=== PATIENT | female | born 2000 | race Caucasian/White ===

== ENCOUNTER 2018-04-20 20:28 | Emergency (ER) | payer OTHER, SELFPAY ==
[2018-04-20 20:29] VITALS: BP 129/83; PULSE 87; RESP 14; TEMP 37.3; O2SAT 98; BMI 21.8
--- NOTE | 2018-04-20 20:58 | ED.VIS.GEN ---
History of Present Illness Chief Complaint: Vag Bleeding Informant: Patient Onset: Hours - 4-5 Context: Gradual Onset Timing: Waxes and wanes Quality: cramping Location: pelvis -- mid and right Current Severity: Moderate Maximum Severity: Severe Worsened by: nothing Relieved by: possibly by advil 400mg Associated Symptoms: nausea, lightheaded, pain radiating into low back, vaginal bleeding Narrative: Patient states she usually has very regular menstrual cycles every 4 weeks, she started bleeding today and her last normal menstrual period was 3 weeks ago. She states it started as spotting, but then became very heavy, and is still present but not as bad. She states the pain was like regular menstrual cramps but ?10. She has never been before but is sexually active. No history of any STDs that she knows of, nor does she have any concern. She denies having any other abnormal discharge other than the bleeding currently. No recent fevers. Prior similar symptoms: No Past Medical History - Allergies and Home Meds Allergies/Adverse Reactions: Allergies No Known Allergies Allergy (Verified 04/20/18 20:32) Primary Care Physician: NOT,DEFINED [NON-STAFF] - Past Medical History: None Surgical History: no surgical history Smoking Status: Never smoker Review of Systems All systems negative except as indicated Gastrointestinal: Reports: Abdominal pain, Nausea. Denies: Vomiting, Diarrhea, Melena, Hematochezia Genitourinary: Denies: Dysuria, Hematuria, Frequency Musculoskeletal: Reports: Back pain. Denies: Neck pain, Swelling, Extremity Pain Skin: Denies: Rash Neurological: Denies: Headache, Weakness, Parasthesia Physical Exam Vital Signs/Narrative: Vital Signs Temp Pulse Resp BP Pulse Ox 04/20/18 20:29 99.2 F H 87 14 129/83 H 98 Inital Vital Signs reviewed: Yes General: Well nourished, Well developed, - - nad Head: Normocephalic, Atraumatic Cardiovascular: Regular rate, Regular rhythm, No murmurs Respiratory: No distress, CTA bilaterally, Chest nontender Abdomen: Soft, Nondistended, Normal bowel sounds, Tender - moderately in suprapubic and R pelvis. otherwise, benign exam.. Negative for: Guarding, Rebound tenderness Back: Nontender, Normal Inspection. Negative for: CVA tenderness Extremities: Nontender, No edema Skin: Normal color, No rash Neurological: Alert, Oriented x3, Cranial nerves II-XII grossly intact, Normal Strength, Normal Sensation Psychological: Normal affect Diagnostic/Tx/Re-eval Impressions Transvaginal US 04/20/18 20:55 IMPRESSION: Mildly heterogenous myometrium may reflect underlying adenomyosis. Electronically Signed: Rosa Estrada MD at 21:58 EDT Tel , Service support , 04/20/18 20:55 Transvaginal Non- [US] Stat Laboratory Results 04/20/18 04/20/18 04/20/18 Range/Units 21:20 21:20 21:20 WBC 11.8 H (4.4-11.0) K/mm3 RBC 4.73 (4.2-5.4) M/mm3 Hgb 13.5 (12.0-15.0) g/dl Hct 41.8 (37-47) % MCV 88.4 (81-99) fL MCH 28.5 (27.0-32.0) pg MCHC 32.3 (32-36) g/gl RDW 12.4 (11.6-14.6) % RDW Differential 40.0 (35.1-43.9) fl Plt Count 257 (150-450) K/mm3 MPV 10.4 (6.2-12.0) fl Immature Gran % (Auto) 0.100 (0.0-0.9) % Neut % (Auto) 65.1 (47-70) % Lymph % (Auto) 25.2 (19-41) % Lynn % (Auto) 8.0 (0-10) % Eos % (Auto) 1.3 (0-5) % Baso % (Auto) 0.3 (0-1) % Absolute Neuts (auto) 7.7 (2.0-7.7) X10^3/uL Absolute Lymphs (auto) 2.98 (0.83-4.51) X10^3/ul Total Counted Not Reportable Sodium 144 (136-145) mmol/L Potassium 3.3 L (3.5-5.1) mmol/L Chloride 111 H (98-107) mmol/L Carbon Dioxide 26.0 (21.0-32.0) mmol/L Anion Gap 7 (5-15) BUN 10 (7-18) mg/dL Creatinine 0.86 (0.55-1.02) mg/dL Estim Creat Clear Calc 109.96 ml/min Est GFR (MDRD) Af Amer 109 (>60) mL/min Est GFR (MDRD) Non-Af 90 (>60) mL/min BUN/Creatinine Ratio 11.7 (10-20) RATIO Glucose 90 (74-106) mg/dL Calcium 8.8 (8.5-10.1) mg/dL Serum , Qual NEGATIVE (0-9 Nonpreg) Negative Urine Color (Yellow) Urine Clarity (Clear) Urine pH (5.0 - 8.0) Ur Specific [place] (1.002-1.030) Urine Protein (Negative) mg/dl Urine Glucose (UA) (Normal) mg/dl Urine Ketones (Negative) mg/dl Urine Occult Blood (Negative) /ul Urine Nitrite (Negative) Urine Bilirubin (Negative) mg/dL Urine Urobilinogen (Normal) mg/dl Ur Leukocyte Esterase (Negative) /ul Urine RBC (0-5) /hpf Urine WBC (0-5) /hpf Ur Squamous Epith Cells (5-10) /hpf Urine Bacteria (None Seen) /hpf Urine Mucus (<or=2+) /hpf 04/20/18 Range/Units 21:25 WBC (4.4-11.0) K/mm3 RBC (4.2-5.4) M/mm3 Hgb (12.0-15.0) g/dl Hct (37-47) % MCV (81-99) fL MCH (27.0-32.0) pg MCHC (32-36) g/gl RDW (11.6-14.6) % RDW Differential (35.1-43.9) fl Plt Count (150-450) K/mm3 MPV (6.2-12.0) fl Immature Gran % (Auto) (0.0-0.9) % Neut % (Auto) (47-70) % Lymph % (Auto) (19-41) % Lynn % (Auto) (0-10) % Eos % (Auto) (0-5) % Baso % (Auto) (0-1) % Absolute Neuts (auto) (2.0-7.7) X10^3/uL Absolute Lymphs (auto) (0.83-4.51) X10^3/ul Total Counted Sodium (136-145) mmol/L Potassium (3.5-5.1) mmol/L Chloride (98-107) mmol/L Carbon Dioxide (21.0-32.0) mmol/L Anion Gap (5-15) BUN (7-18) mg/dL Creatinine (0.55-1.02) mg/dL Estim Creat Clear Calc ml/min Est GFR (MDRD) Af Amer (>60) mL/min Est GFR (MDRD) Non-Af (>60) mL/min BUN/Creatinine Ratio (10-20) RATIO Glucose (74-106) mg/dL Calcium (8.5-10.1) mg/dL Serum , Qual (0-9 Nonpreg) Negative Urine Color Yellow (Yellow) Urine Clarity Sl. Cloudy (Clear) Urine pH 8.0 (5.0 - 8.0) Ur Specific [place] 1.015 (1.002-1.030) Urine Protein 15 H (Negative) mg/dl Urine Glucose (UA) Normal (Normal) mg/dl Urine Ketones Negative (Negative) mg/dl Urine Occult Blood 150 H (Negative) /ul Urine Nitrite Negative (Negative) Urine Bilirubin Negative (Negative) mg/dL Urine Urobilinogen Normal (Normal) mg/dl Ur Leukocyte Esterase 25 H (Negative) /ul Urine RBC 5-10 SEEN (0-5) /hpf Urine WBC 0-5 SEEN (0-5) /hpf Ur Squamous Epith Cells 5-10 SEEN (5-10) /hpf Urine Bacteria 1+ (None Seen) /hpf Urine Mucus 0 SEEN (<or=2+) /hpf - Medical Decision Making is negative, labs are unremarkable, except for mild hypokalemia which could reflect shift and does not necessarily need to be treated at this time. I performed ultrasound because even if is negative which it is, tubo-ovarian abscess and ovarian torsion are in the differential. The ultrasound was only remarkable for possible adenomyosis. I discussed this with Loretta Silverio who was on-call for unassigned gynecology, she had no recommendations acutely except to have the patient follow-up with them in the office, which I will do. ED Disposition - Plan for ED Patient: Disposition: Home or Assisted Living Chief Complaint: Vag Bleeding Diagnosis: Abnormal uterine bleeding, Acute pelvic pain, female Instructions: ED Bleed Irregular Vaginal Prescriptions: traMADol [Ultram] 50 mg PO Q4H PRN PRN 2 Days #10 tab PRN Reason: Pain Referrals: NOT,DEFINED [NON-STAFF] - Suly Castillo MD [STAFF PHYSICIAN] - (call for appt)
[2018-04-20] MEDS: traMADol 50 MG Tablet PO (21:17)
[2018-04-20] MEDS: Ondansetron 4 MG/2 ML Vial IV (21:18)
[2018-04-20 21:30] LABS: Mucous, Urine 0 SEEN /hpf (<or=2+)
[2018-04-20 21:33] LABS: Absolute Lymphocyte Count 2.98 X10^3/ul (0.83-4.51); Absolute Neutrophil Count 7.7 X10^3/uL (2.0-7.7); Basophil# 0.03 X10^3/uL; Basophil% 0.3 % (0-1); Eosinophil# 0.15 X10^3/uL; Eosinophils% 1.3 % (0-5); Hematocrit 41.8 % (37-47); Hemoglobin 13.5 g/dl (12.0-15.0); Lymphocyte # 2.98 X10^3/ul (4.0); Lymphocyte % 25.2 % (19-41); Mean Corp Hgb Conc 32.3 g/gl (32-36); Mean Corpuscular Hgb 28.5 pg (27.0-32.0); Mean Corpuscular Volume 88.4 fL (81-99); Mean Platelet Vol. 10.4 fl (6.2-12.0); Monocyte# 0.94 X10^3/uL; Neutrophil # 7.71 X10^3/uL (2.7-7.7); Neutrophil % 65.1 % (47-70); POSITIVE COUNT NO; POSITIVE DIFFERENTIAL NO; POSITIVE MORPHOLOGY NO; Platelet Count 257 K/mm3 (150-450); RBC Distribution Width CV 12.4 % (11.6-14.6); Red Blood Count 4.73 M/mm3 (4.2-5.4); White Blood Count 11.8 K/mm3 (4.4-11.0)
[2018-04-20 21:37] LABS: Color, Urine Yellow (Yellow); Glucose, Dipstick Normal (Normal); Ketone-Dipstick Negative (Negative); Leukocyte Esterase-Dipstick 25 /ul (Negative); Nitrite-Dipstick Negative (Negative); Occult Blood-Urine 150 /ul (Negative); Protein-Dipstick 15 mg/dl (Negative); Specific Gravity, Urine 1.015 (1.002-1.030); Urine Bilirubin Dipstick Negative (Negative); Urine Clarity Sl. Cloudy (Clear); Urine Urobilinogen Normal (Normal)
[2018-04-20 21:43] LABS: Bacteria 1+ /hpf (None Seen); Red Blood Cells-Urine 5-10 SEEN /hpf (0-5); Squamous Epithelial Cells - UA 5-10 SEEN /hpf (5-10); White Blood Cells 0-5 SEEN /hpf (0-5)
[2018-04-20 21:46] LABS: Anion Gap 7 (5-15); BUN 10 mg/dL (7-18); BUN/Creat Ratio 11.7 RATIO (10-20); Calcium,Total 8.8 mg/dL (8.5-10.1); Chloride 111 mmol/L (98-107); Creatinine, Serum 0.86 mg/dL (0.55-1.02); EST Glomerular Filtration Rate 90 mL/min (>60); Est Glom Filt Rate - Afr Amer 109 mL/min (>60); Estimated Creatinine Clearance 109.96 ml/min; Glucose 90 mg/dL (74-106); Potassium 3.3 mmol/L (3.5-5.1); Sodium Level 144 mmol/L (136-145)
[2018-04-20 21:54] LABS: Pregnancy, Serum, hCG Quali. NEGATIVE Negative (0-9 Nonpreg)
== END 2018-04-20 22:36 | disposition home or self-care (01) ==
PROVIDERS: Emergency Provider Emergency Medicine
DX: N93.9 Abnormal uterine and vaginal bleeding, unspecified (principal); R10.2 Pelvic and perineal pain
CPT/HCPCS: 76830; 80048; 81001; 84703; 85025; 93976; 96361; 96374; 99284; J7040; A4216; J2405

== ENCOUNTER → 2019-05-15 10:05 | Outpatient (CLI) | payer OTHER, SELFPAY ==
[2019-05-15 09:42] VITALS: BMI 24.3
[2019-05-15 10:54] LABS: Absolute Lymphocyte Count 1.58 X10^3/uL (0.83-4.51); Absolute Neutrophil Count 8.6 X10^3/uL (2.0-7.7); Basophil# 0.03 X10^3/uL; Basophil% 0.3 % (0-1); Eosinophil# 0.09 X10^3/uL; Eosinophils% 0.8 % (0-5); Hematocrit 34.4 % (37-47); Hemoglobin 11.4 g/dL (12.0-15.0); Lymphocyte # 1.58 X10^3/ul (4.0); Lymphocyte % 13.9 % (19-41); Mean Corp Hgb Conc 33.1 g/dL (32-36); Mean Corpuscular Hgb 30.6 pg (27.0-32.0); Mean Corpuscular Volume 92.5 fL (81-99); Mean Platelet Vol. 10.4 fl (6.2-12.0); Monocyte# 0.88 X10^3/uL; Monocyte% 7.8 % (0-10); NRBC Flagged by Analyzer 0 % (0-5); Neutrophil # 8.63 X10^3/uL (2.7-7.7); Neutrophil % 76.1 % (47-70); Platelet Count 226 K/mm3 (150-450); RBC Distribution Width CV 12.9 % (11.6-14.6); RBC Distribution Width SD 43.8 fl (35.1-43.9); Red Blood Count 3.72 M/mm3 (4.2-5.4); White Blood Count 11.3 K/mm3 (4.4-11.0)
[2019-05-15 11:07] LABS: Glucose Challenge Gest 1H 50g 96 mg/dL (70-140)
== END ==
PROVIDERS: Referring Provider Nurse Practitioner Women's Health; Visit Provider Nurse Practitioner Women's Health
DX: Z34.90 Encounter for supervision of normal pregnancy, unspecified, unspecified trimester (principal)
CPT/HCPCS: 36415; 82950; 85025; 86850; 86900; 86901

== ENCOUNTER → 2019-07-10 16:33 | Outpatient (CLI) | payer OTHER, SELFPAY ==
[2019-07-10 15:05] VITALS: BMI 24.3
== END ==
PROVIDERS: Family Provider Internal Medicine; PCP Internal Medicine; Referring Provider Nurse Practitioner Women's Health; Visit Provider Nurse Practitioner Women's Health
DX: Z34.90 Encounter for supervision of normal pregnancy, unspecified, unspecified trimester (principal)
CPT/HCPCS: 87081

== ENCOUNTER → 2019-07-13 15:06 | Outpatient (CLI) | payer OTHER, SELFPAY ==
[2019-07-10 15:05] VITALS: BMI 24.3
== END ==
LOC: LABSPEC 15:06
PROVIDERS: Family Provider Internal Medicine; PCP Internal Medicine; Visit Provider Nurse Practitioner Women's Health
DX: N39.0 Urinary tract infection, site not specified (principal)
CPT/HCPCS: 87086; 87088

== ENCOUNTER 2019-07-19 02:35 | Outpatient (CLI) | payer OTHER, SELFPAY ==
[2019-07-13 15:29] VITALS: BMI 24.3
[2019-07-19 02:45] VITALS: BMI 27.1
[2019-07-19 03:20] LABS: ROM Internal Control Test YES-OK TO RESULT pt. (Internal QC); ROM Patient Test Negative (Negative)
== END 2019-07-19 04:20 | disposition home or self-care (01) ==
LOC: WPOUT 02:41 → WP 02:42
PROVIDERS: Family Provider Internal Medicine; PCP Internal Medicine; Visit Provider Obstetrics & Gynecology
DX: Z34.03 Encounter for supervision of normal first pregnancy, third trimester (principal); O99.343 Other mental disorders complicating pregnancy, third trimester; F41.9 Anxiety disorder, unspecified; F32.9 Major depressive disorder, single episode, unspecified; Z3A.37 37 weeks gestation of pregnancy; Z79.899 Other long term (current) drug therapy
CPT/HCPCS: 59025; 59050; 84112; 99218; G0378

== ENCOUNTER 2019-07-24 10:10 | Inpatient (IN) | payer OTHER, SELFPAY ==
[2019-07-24 08:31] VITALS: BMI 27.6
[2019-07-24 09:13] LABS: ROM Internal Control Test YES-OK TO RESULT pt. (Internal QC)
[2019-07-24 09:15] LABS: ROM Patient Test POSITIVE (Negative)
[2019-07-24 10:32] VITALS: BMI 27.3
[2019-07-24] MEDS: Lactated Ringers 1,000 ML 50 ML IV (10:40)
[2019-07-24 11:04] LABS: Absolute Lymphocyte Count 1.85 X10^3/uL (0.83-4.51); Absolute Neutrophil Count 8.9 X10^3/uL (2.0-7.7); Basophil# 0.04 X10^3/uL; Basophil% 0.3 % (0-1); Eosinophil# 0.08 X10^3/uL; Eosinophils% 0.7 % (0-5); Hematocrit 34.5 % (37-47); Hemoglobin 11.8 g/dL (12.0-15.0); Lymphocyte # 1.85 X10^3/ul (4.0); Lymphocyte % 15.5 % (19-41); Mean Corp Hgb Conc 34.2 g/dL (32-36); Mean Corpuscular Hgb 30.6 pg (27.0-32.0); Mean Corpuscular Volume 89.4 fL (81-99); Mean Platelet Vol. 11.1 fl (6.2-12.0); Monocyte% 7.6 % (0-10); NRBC Flagged by Analyzer 0 % (0-5); Neutrophil # 8.88 X10^3/uL (2.7-7.7); Neutrophil % 74.5 % (47-70); Platelet Count 221 K/mm3 (150-450); RBC Distribution Width CV 12.7 % (11.6-14.6); RBC Distribution Width SD 40.9 fl (35.1-43.9); Red Blood Count 3.86 M/mm3 (4.2-5.4); White Blood Count 11.9 K/mm3 (4.4-11.0)
[2019-07-24] MEDS: Oxytocin 30 units/NS 500 ml 30 UNITS/500 ML IV.SOLN IV (12:17)
[2019-07-24] MEDS: Lactated Ringers 500 ML 999 ML IV (13:43)
[2019-07-24] MEDS: fentaNYL-bupivacaine (epidural) 100 ML BAG EPIDURAL ×2 (14:28→19:40)
--- NOTE | 2019-07-24 19:53 | PCM.HPOB.BLA ---
- Problem List (1) SROM (spontaneous rupture of membranes) Status: Acute (2) Anxiety Status: Acute (3) Depression Status: Acute Qualifiers: Comment: Zoloft 75mg QD(increased 06/27 and Buspar PRN, encourage counseling. History of suicidal thoughts. 1 psychiatric hospitalization at age 12. (4) H/O cleft palate Status: Acute Comment: Nephew, nl anatomy scan at [facility] (5) Status: Acute Qualifiers: Comment: NT Sequential screening done at [facility]- neg; CF screening- neg; urine culture- negative (6) Rh negative status during Status: Acute Qualifiers: Comment: A neg- rhogam give at 28 weeks (7) Supervision of normal Status: Acute Qualifiers: Comment: PRR SANDRA 08/03/2019 boy Jose Spouse: Eliceo CINDA [facility] (8) UTI in Status: Acute Qualifiers: Comment: 07/13/19 tx macrobid. 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 Required: No Is patient in pain?: No Allergies No Known Allergies Allergy (Verified 07/24/19 08:31) Medications vit 47-iron fum 27 mg iron-folate no1 1 mg-dha 300 mg capsule 1 cap PO DAILY cap 03/17/19 [History Confirmed 07/24/19] Nitrofurantoin Macrocrystal [Nitrofurantoin] 100 mg PO BID 07/19/19 [History Confirmed 07/19/19] Sertraline HCl 75 mg PO QHS 07/19/19 [History Confirmed 07/24/19] Last Menstral Period: 10/27/18 Zika: Zika virus screening: Negative : No PFSH PFSH Medical History Anxiety (Acute) Depression (Acute) Family History Father Diabetes Social History (Updated 07/24/19 @ 09:35 by Jacinda Patricia MD) adopted: No household members: family housing: house current occupational status: employed 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 current occupational exposures/hazards: No pets and animals: Yes history of recent travel: Yes sexually active: Yes Smoking Status: Never smoker second hand exposure: No alcohol intake: current alcohol intake frequency: holidays/special occasions only substance use type: does not use seatbelt use: always do you feel safe at home: Yes additional social history: Spouse- Eliceo- [employer], [employer] professor Pregancy History 1 Elective abortions Hx Para 0 Spontaneous abortions Hx # Term Pregnancies Ectopic pregnancies Hx # Pregnancies Multiple births # of living children HPI 38 week ob: Details: OSWALDO PRICE is a 19 year old who presents for routine OB visit and was found to have positive ROM on exam OB Visit SANDRA Calculator Estimated Delivery Date Method Current WG Current Estimate 08/03/19 LMP (Certain) 38w 4d Expected Delivery Route/Plan Labor Preferences- labor support person: Eliceo pain management: epidural cut cord/dad catch: yes : yes PP control planned: pill discussed possible routes of delivery and associated risks: special requests: [] Specific Issue/Plans flu vaccine: tdap vaccine: given rhogam: given LARC form signed: declines movement and labor precautions reviewed. Problem list reviewed and updated with the most current plan of care details and appropriate orders placed. Relevant counseling for the gestational age provided. Continue routine care and follow up unless otherwise noted in visit notes/problem list details Initial Weight: 140 lb Date EGA Weight BP Urine Prot Glucose FHR FuHt Pres Mov CTX Dilation Effaced St Visit Note 03/17/19 20w 1d 155 lb (+15 lb) 100/58 155 22 Active no vb cramping, CINDA from [facility]. anxiety well controlled. 04/17/19 24w 4d 161 lb 8 oz (+21 lb 8 oz) 110/60 Negative Negative 150 25 Active no vb lof good fm n oregular ctx 05/15/19 28w 4d 165 lb (+25 lb) 110/60 Negative Negative 156 28 Active No VB, LOF. Doing well 05/29/19 30w 4d 169 lb (+29 lb) 106/60 150 31 33 no vb lof good fm no regular ctx 06/12/19 32w 4d 174 lb (+34 lb) 120/64 140 35 Cephalic no vb lof good fm n oregular ctx. needs to sign up for childbirth class 06/27/19 34w 5d 176 lb 6 oz (+36 lb 6 oz) 110/72 Negative Negative 142 36 Cephalic Doing well. No VB, LOF. Good FM 07/10/19 36w 4d 179 lb 6 oz (+39 lb 6 oz) 118/78 Negative Negative 141 37 Cephalic 2 50 -3 NO VB, LOF. Irreg CTX and more pressure. Good FM. GBS 07/19/19 37w 6d 185 lb 8 oz (+45 lb 8 oz) 134/78 Negative Negative 160 38 Cephalic 3 70 -2 Irreg CTX. Seen WP early AM and ruled out ROM. No VB, LOF 07/24/19 38w 4d 187 lb (+47 lb) 124/80 Negative Negative 150 40 Cephalic 4 80 ROM plus positive, to l and d for labor Visit Notes Visit Date: 07/24/19 ??ROM plus positive, to l and d for labor ??Jacinda Patricia MD on 07/24/19 Visit Date: 07/19/19 ??Irreg CTX. Seen WP early AM and ruled out ROM. No VB, LOF ??BLAIRE Gonzalez on 07/19/19 Visit Date: 07/10/19 ??NO VB, LOF. Irreg CTX and more pressure. Good FM. GBS ??BLAIRE Gonzalez on 07/10/19 Visit Date: 06/27/19 ??Doing well. No VB, LOF. Good FM ??BALIRE Gonzalez on 06/27/19 Visit Date: 06/12/19 ??no vb lof good fm n oregular ctx. needs to sign up for childbirth class ??Jacinda Patricia MD on 06/12/19 Visit Date: 05/29/19 ??no vb lof good fm no regular ctx ??Jacinda Patricia MD on 05/29/19 Visit Date: 05/15/19 ??No VB, LOF. Doing well ??BLAIRE Gonzalez on 05/15/19 Visit Date: 04/17/19 ??no vb lof good fm n oregular ctx ??Jacinda Patricia MD on 04/17/19 Visit Date: 03/17/19 ??no vb cramping, CINDA from [facility]. anxiety well controlled. ??Jacinda Patricia MD on 03/17/19 ACOG First Trimester First Trimester: Desire for , Alcohol, Tobacco Cessation, Illicit/Recreational Drug/Substance Use, Intimate Partner Violence, Barriers to care, Unstable Housing, Communication Barriers, Environmental/Work Hazards, Anticipated Course of Care, Toxoplasmosis Precations, Use of Any medications, Sexual activity, Exercise, Dental Care, Sauna/Hot tub use, Seat Belt use, Childbirth classes/Hospital facilities, , Travel, Indications for US and Screening for Aneuploidy Second Trimester Second Trimester: Signs and Symptoms of Labor, Selecting a care provider, Reproductive Life Planning, Care Planning, Tobacco Cessation, Depression/Anxiety and Intimate Partner Violence Third Trimester Third Trimester: Pain Management Plans, Labor support person(s), Immediate Larc, Movement Monitoring and Feeding Yes ; discussed Trial of Labor after Counseling or discussed Circumcision preference Diagnostics Diagnostics Diagnostics Blood Type A NEGATIVE 05/15/19 Antibody Screen NEGATIVE 05/15/19 Glucose 1 Hr 50 gm 96 mg/dL (70-140) 05/15/19 Hgb 11.4 g/dL (12.0-15.0) L 05/15/19 Hct 34.4 % (37-47) L 05/15/19 Details: HIV: Urine Culture: Sequential Screen: NIPT Screen: ROS Const Reports system reviewed and no additional complaints, except as docu Card Reports system reviewed and no additional complaints, except as docu Resp Reports system reviewed and no additional complaints, except as docu GI Reports system reviewed and no additional complaints, except as docu, Reports nausea Reports system reviewed and no additional complaints, except as docu Musc Reports system reviewed and no additional complaints, except as docu Exam Const General: cooperative, healthy appearing, comfortable, anxious HENMT Head: normal to inspection Nose: external nose normal Face and sinus: normal facial exam Neck Neck: normal visual inspection, full ROM, no lymphadenopathy Thyroid: thyroid normal Chest Chest palpation & inspection: normal inspection of the chest Resp Effort & Inspection: normal respiratory effort GI Inspection: normal to inspection Palpation: soft, other (gravid uterus) Other: infant vertex and appropriate size for gestational age Other: Cervical Exam: Extrem General: pedal edema Results BMSUA Office Urine Color Straw Last Edit by Michelle Adams on 07/24/19 08:36 Office Urine Clarity Cloudy Last Edit by Michelle Adams on 07/24/19 08:36 Office Urine Glucose Negative Last Edit by Michelle Adams on 07/24/19 08:36 Office Urine Ketones Negative Last Edit by Michelle Adams on 07/24/19 08:36 Off Ur Spec [place] 1.010 Last Edit by Michelle Adams on 07/24/19 08:36 Office Urine pH Last Edit by Michelle Adams on 07/24/19 08:36 Office Urine Bilirubin Negative Last Edit by Michelle Adams on 07/24/19 08:36 Office Urine Urobilinogen Negative Last Edit by Michelle Adams on 07/24/19 08:36 Office Urine Blood Trace Last Edit by Michelle Adams on 07/24/19 08:36 Office Urine Blood Hemolyzed Last Edit by Michelle Adams on 07/24/19 08:36 Office Urine Protein Negative Last Edit by Michelle Adams on 07/24/19 08:36 Office Urine Nitrate Negative Last Edit by Michelle Adams on 07/24/19 08:36 Off Ur Leukocytes Negatve Last Edit by Michelle Adams on 07/24/19 08:36 Assessment & Plan Problems 1. Urinary tract infection in mother during third trimester of O23.43 2. Dysthymia F34.1 3. Anxiety F41.9 4. H/O cleft palate Z87.730 5. Rh negative status during in second trimester O26.892 6. Encounter for supervision of normal first in second trimester Z34.02 7. 38 weeks gestation of Z3A.38 Plan admit IAL ROM positive rh negative- rhogam if indicated Orders Orders: POC Urinalysis Dip (Clinic) Today R30.0 (ROM) Rupture Of Membranes Today N89.8 Coding Level of Care Code OB Routine Diagnoses Urinary tract infection in mother during third trimester of O23.43 ??Trimester: third trimester Dysthymia F34.1 ??Depression Type: dysthymia Anxiety F41.9 H/O cleft palate Z87.730 Rh negative status during in second trimester O26.892 ??Trimester: second trimester Encounter for supervision of normal first in second trimester Z34.02 ??Normal : normal first ??Trimester: second trimester 38 weeks gestation of Z3A.38 ??Weeks of gestation: 38 weeks
--- NOTE | 2019-07-24 19:55 | PCM.PN.BLA ---
Progress Note patient pushing over almost 2 hours, making progress but still some pushing to continue. fht cat II reassuring overall, making progress.
[2019-07-24] MEDS: Oxytocin 30 units/NS 500 ml 30 UNITS/500 ML IV.SOLN 334 UNITS IV (20:40)
--- NOTE | 2019-07-24 21:07 | PCM.OPRPT ---
Problem List (1) SROM (spontaneous rupture of membranes) Status: Acute (2) Anxiety Status: Acute (3) Depression Status: Acute Qualifiers: Comment: Zoloft 75mg QD(increased 06/27 and Buspar PRN, encourage counseling. History of suicidal thoughts. 1 psychiatric hospitalization at age 12. (4) H/O cleft palate Status: Acute Comment: Nephew, nl anatomy scan at [facility] (5) Status: Acute Qualifiers: Comment: NT Sequential screening done at [facility]- neg; CF screening- neg; urine culture- negative (6) Rh negative status during Status: Acute Qualifiers: Comment: A neg- rhogam give at 28 weeks (7) Supervision of normal Status: Acute Qualifiers: Comment: PRR SANDRA 08/03/2019 so Garcia Spouse: Eliceo CINDA [facility] (8) UTI in Status: Acute Qualifiers: Comment: 07/13/19 tx macrobid. Vaginal Delivery Maternal Presentation: Active Labor, Spontaneous Rupture of Membranes ial srom 38 weeks Amniotic Membrane Rupture Type: Spontaneous at home Amniotic Fluid Description: Clear Final SANDRA: 08/03/19 Gestational age: 38 Weeks and 4 Days Date of Procedure: 07/24/19 Pre-Operative Diagnosis: ial srom maternal exhaustion, asynclitic presentation Post-Operative Diagnosis: same Surgery/ Procedure Performed: Vacuum Assisted Vaginal Delivery Type of Anesthesia: Epidural Description of Procedure: Patient began pushing and after 2 hours, it was discussed and offered to place a vacuum to help with descent of the head as it appearaed to be asynclitic and maternal pushing efforts were becoming increasingly difficult. vacuum applied and suction maintained in the green zone for 3 contractions no popoffs and pulls with 3 ctx. patient and had been consented prior to application and they agreed with application. The head was delivered atraumatically [and a loose nuchal cord ?1 was identified and easily reduced over the 's head]. The anterior and posterior shoulders delivered without complication followed by the rest of the infant and the infant was placed on the maternal abdomen. Delayed cord clamping was employed for approximately 60 seconds. Cord was clamped and cut and gentle traction was applied to the cord and the placenta delivered spontaneously immediately following it was noted to be intact with three-vessel cord. The perineum and vagina were inspected and had a second-degree perineal laceration that was closed to the rectal mucosa but the anal sphincter capsule and muscle was seen and noted to be intact. Reinforcing stitches placed to area in the skin reapproximated in the usual fashion with 3-0 Vicryl Rapide. EBL was 300 cc. Patient and infant tolerated delivery well. Presentation: CHONG Placental Delivery Description: Spontaneous Placenta Disposition: [facility] Cord Vessel Description: 3 Vessels Cord Entanglement: Around neck x 1, loose Estimated Blood Loss: 300 A gender: Male Episiotomy Description: None Laceration: Perineal Extension/lac, 2nd degree Medications given after delivery: IV Pitocin Complications: None Multi Select Codes - Urinary/Genital Urinary/Genital CPT Codes: 76484 Vaginal Delivery global pkg - vacuum assisted
--- NOTE | 2019-07-25 01:14 | NURSING ---
Discussed Zoloft on home medication list with pt, offered to call and get ordered for now since dose was missed on 07/24. Pt normally takes in evenings. Pt vomiting and does not wish to take tonight. Discussed that will reorder for evening of 07/25.
[2019-07-25] MEDS: Ketorolac 10 MG Tablet PO ×3 (01:22→21:08)
[2019-07-25] MEDS: 0.9% Saline Lock 10 ML Syringe IV (01:22)
[2019-07-25] MEDS: Ondansetron 4 MG/2 ML Vial IV (01:22)
[2019-07-25 04:10] VITALS: BP 124/61; PULSE 96; RESP 18; TEMP 36.4; O2SAT 96
[2019-07-25 07:45] VITALS: BP 116/60; PULSE 79; RESP 16; TEMP 36.7
--- NOTE | 2019-07-25 07:45 | PN.OBGYN_ITS ---
Patient Problems: Active and Suspected Problems (Last Reviewed 07/24/19 @ 08:32 by Michelle Adams) SROM (spontaneous rupture of membranes) (Acute) Subjective: doing well no complaints pain controlled no CP SOB N V ambulating well tolerating po lochia moderate, going well - Physical Exam Vitals/I&O's: Vital Signs Temp Pulse Resp BP Pulse Ox 97.5 F L 96 18 124/61 H 96 07/25/19 04:10 07/25/19 04:10 07/25/19 04:10 07/25/19 04:10 07/25/19 04:10 Oxygen Delivery Method Room Air Weight: 185 lb Body Mass Index (BMI) 27.3 Intake and Output for Last 24 Hours 07/23/19 07/24/19 07/25/19 23:59 23:59 23:59 Intake Total 2716.57 / 2716.57 Output Total 1350 / 1350 900 / 900 Balance 1366.57 / 1366.57 -900 / -900 General: Alert, Oriented x3 Abdomen: Soft, Non Tender, Non-Distended, - - FF below U Laboratory Results 07/24/19 08:50: Vag Amniotic Fld Detect POSITIVE H 07/24/19 10:40: WBC 11.9 H, RBC 3.86 L, Hgb 11.8 L, Hct 34.5 L, MCV 89.4, MCH 30.6, MCHC 34.2, RDW Std Deviation 40.9, RDW Coeff of Michael 12.7, Plt Count 221, MPV 11.1, Immature Gran % (Auto) 1.400 H, Neut % (Auto) 74.5 H, Lymph % (Auto) 15.5 L, Fannin % (Auto) 7.6, Eos % (Auto) 0.7, Baso % (Auto) 0.3, Absolute Neuts (auto) 8.9 H, Absolute Lymphs (auto) 1.85, Nucleated RBC % 0 07/24/19 10:40: Blood Type A NEGATIVE, Antibody Screen POSITIVE H, Antibody Identification ANTI-D Current Medications Acetaminophen (Tylenol) 1,000 mg PO Q8H PRN PRN PRN Reason: Pain Score 1-3/10 Bisacodyl (Dulcolax) 10 mg RECTAL UD PRN PRN Reason: If no BM Dibucaine (Dibucaine) 1 applic TOPICAL TID PRN PRN; Protocol PRN Reason: Discomfort Hydrocortisone (Hytone) 1 applic TOPICAL TID PRN PRN; Protocol PRN Reason: Discomfort Ketorolac Tromethamine (Toradol) 10 mg PO Q6H PRN PRN PRN Reason: Pain Score 1-3/10 Stop: 07/29/19 21:31 Last Admin: 07/25/19 01:22 Dose: 10 mg Documented by: Methylergonovine Maleate (Methergine) 0.2 mg IM X1 PRN PRN Reason: Excess bleeding/uterine atony Ondansetron HCl (Zofran) 4 mg IV Q4H PRN PRN PRN Reason: Nausea Last Admin: 07/25/19 01:22 Dose: 4 mg Documented by: Oxycodone HCl (Oxyir) 5 - 10 mg PO Q4H PRN PRN PRN Reason: Pain Score 4-10/10 Senna/Docusate Sodium (Senokot-S, Eulalia-Colace) 1 - 2 tablet PO DAILY PRN PRN PRN Reason: Constipation Simethicone (Mylicon) 80 mg PO PCHS PRN PRN Reason: Indigestion/Stomach pain Sodium Chloride () 5 - 15 ml IV UD PRN PRN Reason: SALINE FLUSH Last Admin: 07/25/19 01:22 Dose: 10 ml Documented by: Medical Necessity - Tobacco Use Smoking Status: Never smoker Assessment/Plan All Active Problems (Last Reviewed 07/24/19 @ 08:32 by Michelle Adams) SROM (spontaneous rupture of membranes) (Acute) UTI in (Acute) Depression (Acute) Anxiety (Acute) H/O cleft palate (Acute) Rh negative status during (Acute) Supervision of normal (Acute) (Acute) s/p VAVD with 2nd degree and extention PPD # 1 1. routine post delivery care 2. breast feeding- support given 3. rh negative 4. rubella immune 5. enc stool softener, pain management and force fluids
[2019-07-25] MEDS: Senna/Docusate Sodium 1 Tablet PO (09:56)
[2019-07-25] MEDS: Hydrocortisone 2.5% Crm 1 APPLIC TOPICAL (09:56)
--- NOTE | 2019-07-25 11:19 | CASEMGMT ---
Social Work Labor and Delivery Consult received for history of maternal depression and anxiety. Records reviewed. Presented to patient/mother of baby (MOB) room today for initial assessment. Multiple visitors present. Offered to come back at a later time and MOB voiced this would be appreciated. MOB and Father of baby report they are not going to go home until at least tomorrow. Informed that would try to come back later today or tomorrow morning. MOB voices agreement. -EDINSON Arellano, OCC THER
--- NOTE | 2019-07-25 12:06 | NURSING ---
WENT IN TO TAKE 1200 VITALS; MOM RESTING WITH ROOM DARKENED AND QUITE, BABY IN CRIB SLEEPING ; DELAYING TAKING VITALS UNTIL 1300
[2019-07-25 13:20] VITALS: BP 116/60; PULSE 74; RESP 18; TEMP 36.7
[2019-07-25 15:45] VITALS: BP 123/61; PULSE 84; RESP 16; TEMP 36.7
[2019-07-25 20:00] VITALS: BP 126/68; PULSE 86; RESP 18; TEMP 36.6; O2SAT 98
[2019-07-25] MEDS: Ondansetron ODT 4 MG Tablet PO (21:10)
[2019-07-25] MEDS: Sertraline 50 MG Tablet 75 MG PO (21:17)
[2019-07-26 02:00] VITALS: BP 119/62; PULSE 72; RESP 18; TEMP 36.4
--- NOTE | 2019-07-26 07:49 | PCM.PN.OB ---
Patient Problems: Active and Suspected Problems (Last Reviewed 07/24/19 @ 08:32 by Michelle Adams) SROM (spontaneous rupture of membranes) (Acute) Subjective: doing well no complaints pain controlled no CP SOB N V ambulating well tolerating po lochia moderate, going well - Physical Exam Vitals/I&O's: Vital Signs Temp Pulse Resp BP Pulse Ox 97.5 F L 72 18 119/62 98 07/26/19 02:00 07/26/19 02:00 07/26/19 02:00 07/26/19 02:00 07/25/19 20:00 Oxygen Delivery Method Room Air Weight: 185 lb Body Mass Index (BMI) 27.3 Intake and Output for Last 24 Hours 07/24/19 07/25/19 07/26/19 23:59 23:59 23:59 Intake Total 2716.57 / 2716.57 Output Total 1350 / 1350 900 / 900 Balance 1366.57 / 1366.57 -900 / -900 General: Oriented x3 Abdomen: Soft, Non Tender, Non-Distended, - - FF below U Current Medications Acetaminophen (Tylenol) 1,000 mg PO Q8H PRN PRN PRN Reason: Pain Score 1-3/10 Bisacodyl (Dulcolax) 10 mg RECTAL UD PRN PRN Reason: If no BM Dibucaine (Dibucaine) 1 applic TOPICAL TID PRN PRN; Protocol PRN Reason: Discomfort Hydrocortisone (Hytone) 1 applic TOPICAL TID PRN PRN; Protocol PRN Reason: Discomfort Last Admin: 07/25/19 09:56 Dose: 1 oint Documented by: Ketorolac Tromethamine (Toradol) 10 mg PO Q6H PRN PRN PRN Reason: Pain Score 1-3/10 Stop: 07/29/19 21:31 Last Admin: 07/25/19 21:08 Dose: 10 mg Documented by: Methylergonovine Maleate (Methergine) 0.2 mg IM X1 PRN PRN Reason: Excess bleeding/uterine atony Ondansetron HCl (Zofran) 4 mg IV Q4H PRN PRN PRN Reason: Nausea Last Admin: 07/25/19 01:22 Dose: 4 mg Documented by: Ondansetron HCl (Zofran Odt) 4 mg PO Q6H PRN PRN PRN Reason: NAUSEA Last Admin: 07/25/19 21:10 Dose: 4 mg Documented by: Oxycodone HCl (Oxyir) 5 - 10 mg PO Q4H PRN PRN PRN Reason: Pain Score 4-10/10 Senna/Docusate Sodium (Senokot-S, Eulalia-Colace) 1 - 2 tablet PO DAILY PRN PRN PRN Reason: Constipation Last Admin: 07/25/19 09:56 Dose: 2 tablet Documented by: Sertraline HCl (Zoloft) 75 mg PO DAILY@2200 NATALYA Last Admin: 07/25/19 21:17 Dose: 75 mg Documented by: Simethicone (Mylicon) 80 mg PO PCHS PRN PRN Reason: Indigestion/Stomach pain Sodium Chloride () 5 - 15 ml IV UD PRN PRN Reason: SALINE FLUSH Last Admin: 07/25/19 01:22 Dose: 10 ml Documented by: Medical Necessity - Tobacco Use Smoking Status: Never smoker Assessment/Plan All Active Problems (Last Reviewed 07/24/19 @ 08:32 by Michelle Adams) SROM (spontaneous rupture of membranes) (Acute) UTI in (Acute) Depression (Acute) Anxiety (Acute) H/O cleft palate (Acute) Rh negative status during (Acute) Supervision of normal (Acute) (Acute) s/p VAVD PPD # 2 1. routine post delivery care 2. breast feeding- support given 3. rh negative 4. rubella immune 5. enc stool softener 6. home today
--- NOTE | 2019-07-26 07:51 | DCINST_ITS ---
Additional Instructions: If you experience any of the following, contact your healthcare provider. * Bleeding that soaks a pad every hour for 2 hours * Fever 100.4 or higher * Unrelieved incision or abdominal pain * Swelling, redness, discharge or bleeding from your incision or episiotomy site * Your incision begins to separate * Problems urinating (including inability to urinate or burning while urinating). * Visual changes * Severe headache * Flu-like symptoms * Pain or redness in one of both of your breasts * Pain, warmth, tenderness or swelling in your legs, especially the calf area * Frequent nausea and vomiting * Symptoms of depression or anxiety If you experience any of the following, call 911 or go to the nearest Emergency Room. * Chest pain * Problems breathing * Seizure activity * Partial or complete paralysis of a body part, slurred speech, weakness or drooping of the face, or a sudden inability to walk or hold your balance Allergies/Adverse Reactions: Allergies No Known Allergies Allergy (Verified 07/24/19 10:33) Medications to take at Discharge vit 47-iron fum 27 mg iron-folate no1 1 mg-dha 300 mg capsule 1 cap PO DAILY cap 03/17/19 Sertraline HCl 75 mg PO QHS 07/19/19 Primary Care Physician: Denisa Edmonds MD [Primary Care Provider] - Test Results: Test results from this visit will be discussed in further detail at your follow- up appointment, if applicable.
--- NOTE | 2019-07-26 07:51 | PCM.DCVAG ---
Additional Instructions: If you experience any of the following, contact your healthcare provider. Bleeding that soaks a pad every hour for 2 hours Fever 100.4 or higher Unrelieved incision or abdominal pain Swelling, redness, discharge or bleeding from your incision or episiotomy site Your incision begins to separate Problems urinating (including inability to urinate or burning while urinating). Visual changes Severe headache Flu-like symptoms Pain or redness in one of both of your breasts Pain, warmth, tenderness or swelling in your legs, especially the calf area Frequent nausea and vomiting Symptoms of depression or anxiety If you experience any of the following, call 911 or go to the nearest Emergency Room. Chest pain Problems breathing Seizure activity Partial or complete paralysis of a body part, slurred speech, weakness or drooping of the face, or a sudden inability to walk or hold your balance Allergies/Adverse Reactions: Allergies No Known Allergies Allergy (Verified 07/24/19 10:33) Medications to take at Discharge vit 47-iron fum 27 mg iron-folate no1 1 mg-dha 300 mg capsule 1 cap PO DAILY cap 03/17/19 Sertraline HCl 75 mg PO QHS 07/19/19 Primary Care Physician: Denisa Edmonds MD [Primary Care Provider] - Test Results: Test results from this visit will be discussed in further detail at your follow-up appointment, if applicable.
[2019-07-26 08:00] VITALS: BP 108/65; PULSE 75; RESP 16; TEMP 36.8; O2SAT 95
[2019-07-26 10:00] VITALS: BP 120/71; PULSE 84; RESP 16; TEMP 36.6; O2SAT 95
[2019-07-26] MEDS: Acetaminophen 500 MG Tablet 1000 MG PO (11:03)
--- NOTE | 2019-07-26 14:30 | CASEMGMT ---
Social Work Assessment Labor and Delivery Unit Date of Referral: 07.25.2019 Time of Referral: 014 Referred By: Dr. Patricia Date of Intervention: 07.26.2019 Time of Intervention: 949 Reason for Referral: maternal history of anxiety and depression History obtained from: medical records and mother of baby (MOB) Deanna Bender; Father of baby (FOB) Eliceo Bender also present for part of conversation. Household composition: MOB and FOB live together, no issues reported with housing. Patient's parent/guardian status: MOB (age 21) and FOB (age 21) have been since December 2018, together for 2 years. MOB denies any form of abuse in relationship with FOB. [place] baby is the first for both. Baby is to be named Jose Bender, born on 07.24.2021. Medical History: MOB is G1, P0 to 1 after delivering Jose. MOB started care at [facility] and then transferred care to Dr. Patricia at 20. visits appearing regular. Baby Jose was born at 38 weeks gestation, weighed 8 pounds 12 ounces, with ?s 8 and 9 at 1 and 5 minutes of life. Educational Status: MOB graduated high school. No reported issues with reading, writing, or learning comprehension. 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 FOB works installing [employer] countertops. No reported concerns currently. Infant Supplies: MOB and FOB report to have needed supplies including pack-n-play with bassinet attachment, car seat, crib, clothing, diapers, wipes. Still needs a breast pump but this has been ordered. Childcare/Caregiver(s): MOB and FOB. MOB?s mother will babysit when MOB returns to work. Transportation: No issues. Programs/Agencies Involved: The parents have applied for medical card for baby. Will apply for WIC. [place] [facility]. Children Services/Legal Issues: No reported history. Behavioral Health Issues: Mental Health History: MOB reports history of depression and anxiety, diagnosed when MOB was 12 years old. MOB has been to counseling as a teen, reports this was not the best experience but would be open to counseling again in the future if needed. MOB reports currently on Zoloft and plans to stay on this in the period. MOB admits to history of suicidal thoughts with plan to use a gun when 12 years old, which resulted in MOB going to an inpatient hospitalization. MOB denies any past attempts at suicide. MOB reports there have been periods over the years that MOB has thought of suicide and dying, usually in times of transition. MOB reports however, that being gave MOB hope, and the idea of growing a life gave MOB a sense of happiness. MOB denies thoughts of suicide during this . Substance Use History: MOB denies past or present drug use. History of social alcohol use but not in . No tobacco use. Family History: maternal grandmother with bipolar disorder Drug Screens: maternal screen negative on 12.13.2018. Family/Social Stressors: NO reported stressors currently. MOB and FOB both report to be happy with having a baby. MOB reports she is aware of risk for depression and anxiety and has been talking to FOB and her own mother about seeing plans in place to decrease feeling overwhelmed. Support Systems: MOB reports to have a strong support system from FOB, MOB?s mom and from FOB?s mother. FOB will be home for a week or so. Depression/Shaken Baby/Safe Sleeping: information given on all topics. ASSESSMENT: Met with MOB and FOB together and then with MOB alone. MOB and FOB both engaged, cooperative, and pleasant. Both MOB and FOB expressed thanks and appreciation for social service liaison coming in to talk about resources and depression. MOB and FOB both handled baby during social workers visit and both were appropriate and seeming to borrego with the baby. MOB and FOB presented as very open with each other regarding MOB?s history of mental health, have been talking about how to rescue stress for MOB. MOB able to verbalize healthy coping skills for when MOB feels depressed or anxious. MOB reports currently to feel happy and is looking forward to being a mom. MOB reports to have needed supplies for baby, adequate support, and plans to stay on antidepressant medication in the period. MOB accepting of depression packet that includes resources as well as a [facility] resource packet. PLAN: MOB and baby to discharge home today. Resources in place for home going. -DEDE Arellano, BANK MESSENGER
== END 2019-07-26 11:45 | disposition home or self-care (01) | DRG 807 ==
LOC: WP 10:20
PROVIDERS: Admitting Provider Obstetrics & Gynecology; Family Provider Internal Medicine; PCP Internal Medicine; Referring Provider Obstetrics & Gynecology; Visit Provider Obstetrics & Gynecology
DX: O64.8XX0 Obstructed labor due to other malposition and malpresentation, not applicable or unspecified (principal); Z37.0 Single live birth; Z3A.38 38 weeks gestation of pregnancy; O75.81 Maternal exhaustion complicating labor and delivery; O69.81X0 Labor and delivery complicated by cord around neck, without compression, not applicable or unspecified; O70.1 Second degree perineal laceration during delivery; F41.9 Anxiety disorder, unspecified; O99.344 Other mental disorders complicating childbirth; F32.9 Major depressive disorder, single episode, unspecified; Z87.730 Personal history of (corrected) cleft lip and palate
CPT/HCPCS: 59025; 59050; 84112; 85025; 86850; 86870; 86900; 86901; 99218; J7120; A4216; G0378; J2405

== ENCOUNTER 2019-08-10 20:17 | Emergency (ER) | payer OTHER, SELFPAY ==
[2019-08-10 20:17] VITALS: BP 106/69; PULSE 128; RESP 18; TEMP 37; O2SAT 97; BMI 23.2
== END 2019-08-10 22:00 | disposition left against medical advice (07) ==
LOC: ED 22:03
PROVIDERS: Emergency Provider Emergency Medicine; Family Provider Internal Medicine; PCP Internal Medicine
DX: Z00.00 Encounter for general adult medical examination without abnormal findings (principal)

== ENCOUNTER → 2019-09-04 12:21 | Outpatient (CLI) | payer OTHER, SELFPAY ==
[2019-09-04 10:32] VITALS: BMI 23.2
[2019-09-05 16:17] LABS: HPV Reflexed? NOT INDICATED
== END ==
PROVIDERS: Family Provider Internal Medicine; PCP Internal Medicine; Referring Provider Nurse Practitioner Women's Health; Visit Provider Nurse Practitioner Women's Health
DX: Z12.4 Encounter for screening for malignant neoplasm of cervix (principal)
CPT/HCPCS: 88175; G0145

== ENCOUNTER 2020-03-15 23:01 | Emergency (ER) | payer OTHER, SELFPAY ==
[2019-11-03 08:39] VITALS: BMI 23.8
[2020-03-15 23:03] VITALS: BP 121/64; PULSE 65; RESP 18; TEMP 36.2; O2SAT 99; BMI 23.6
--- NOTE | 2020-03-15 23:08 | ED.DCSUM_ITS ---
History of Present Illness Chief Complaint: General Illness Informant: Patient Narrative: 19-year-old female presents with lightheadedness which started today while she was at work. She states that it got worse and she had to be sent home. There was another person at work with similar symptoms. She believes that another person had symptoms of COVID?19 and was not coming to work anymore. She has not had any fevers. She states that when she laid down tonight after going home she developed chest pain and a cough with some shortness of breath subjectively. She tried an inhaler that belonged to her significant other which did not help. She has no cardiac history. She is on control. No history of DVT/PE Past Medical History - Allergies and Home Meds Allergies/Adverse Reactions: Allergies No Known Allergies Allergy (Verified 03/15/20 23:05) Primary Care Physician: Denisa Edmonds MD [Primary Care Provider] - Surgical History: no surgical history Smoking Status: Unknown if ever smoked Review of Systems General: Denies: Chills, Fever Eyes: Denies: Visual changes - bilaterally, Diplopia ENT: Denies: Rhinorrhea, Sore throat Cardiovascular: Reports: Chest pain Respiratory: Reports: Dyspnea, Cough Gastrointestinal: Denies: Abdominal pain Musculoskeletal: Denies: Myalgias Skin: Denies: Rash Neurological: Reports: Headache - With lightheadedness Allergy: Denies: Uticaria Physical Exam Vital Signs/Narrative: Vital Signs Temp Pulse Resp BP Pulse Ox 03/15/20 23:03 97.2 F L 65 18 121/64 H 99 Inital Vital Signs reviewed: Yes General: Well nourished, Well developed, No Acute Distress Head: Normocephalic, Atraumatic Eyes: Perrl, EOMI ENT: Moist mucous membranes. Negative for: No rhinorrhea Cardiovascular: Regular rate, Regular rhythm Respiratory: No distress, CTA bilaterally, Chest nontender Abdomen: Soft Extremities: Nontender Skin: Normal color, No rash Neurological: Alert, Oriented x3 Psychological: Normal affect Diagnostic/Tx/Re-eval - Rhythm Strip Rhythm Strip: Sinus Rhythm Rate: 52 Ectopy: None - EKG Initial EKG Interpretation: Sinus Bradycardia, - - 168 ms, QRS duration 84 ms, QTC 429 ms - Medical Decision Making Clinical Impression(s) from Imaging Studies Chest X-Ray 07/18/20 00:04 IMPRESSION: Normal x-ray examination of the chest. Electronically Signed: Hugh Briscoe MD at 0:56 EDT Tel , Service support , Laboratory Data 03/16/20 03/16/20 03/16/20 00:15 00:25 00:25 WBC 9.1 RBC 4.85 Hgb 13.9 Hct 42.5 MCV 87.6 MCH 28.7 MCHC 32.7 RDW Std Deviation 41.3 RDW Coeff of Michael 13.0 Plt Count 315 MPV 10.2 Immature Gran % (Auto) 0.400 Neut % (Auto) 57.0 Lymph % (Auto) 32.8 [place] % (Auto) 8.1 Eos % (Auto) 1.1 Baso % (Auto) 0.6 Absolute Neuts (auto) 5.2 Absolute Lymphs (auto) 2.97 Nucleated RBC % 0 D-Dimer Quant (PE/DVT) 0.41 Sodium Potassium Chloride Carbon Dioxide Anion Gap BUN Creatinine Estim Creat Clear Calc Est GFR (MDRD) Af Amer Est GFR (MDRD) Non-Af BUN/Creatinine Ratio Glucose Calcium Total Bilirubin AST ALT Alkaline Phosphatase Troponin I Total Protein Albumin Globulin Albumin/Globulin Ratio COVID-19 (JESSY) Not Detected 03/16/20 00:25 WBC RBC Hgb Hct MCV MCH MCHC RDW Std Deviation RDW Coeff of Michael Plt Count MPV Immature Gran % (Auto) Neut % (Auto) Lymph % (Auto) [place] % (Auto) Eos % (Auto) Baso % (Auto) Absolute Neuts (auto) Absolute Lymphs (auto) Nucleated RBC % D-Dimer Quant (PE/DVT) Sodium 142 Potassium 3.3 L Chloride 110 H Carbon Dioxide 28.0 Anion Gap 4 L BUN 13 Creatinine 0.81 Estim Creat Clear Calc 114.82 Est GFR (MDRD) Af Amer 114 Est GFR (MDRD) Non-Af 94 BUN/Creatinine Ratio 16.0 Glucose 92 Calcium 9.2 Total Bilirubin 0.60 AST 21 ALT 25 Alkaline Phosphatase 76 Troponin I < 0.015 Total Protein 7.9 Albumin 4.3 Globulin 3.6 Albumin/Globulin Ratio 1.2 COVID-19 (JESSY) Patient presents with initially feeling lightheaded and states she went home and felt like she was short of breath and had some tightness in her chest. When she got here her symptoms were improved. She has concerned that she had exposure to COVID?19 at work. She has not had a fever, chills, myalgias. EKG is sinus rhythm without signs of ischemia. Chest x-ray is negative. Troponin is negative. D-dimer is negative. I have low suspicion for ACS. Patient will be tested for COVID?19 and she is given quarantine precautions. She is also given strict return precautions if her symptoms worsen. 1.Impression: 2.Chest pain uncertain etiology 3.Shortness of breath 4.Lightheadedness 5.Possible exposure to COVID?19 ED Disposition - Plan for ED Patient: Disposition: Home or Assisted Living Diagnosis: Chest pain, COVID-19, Shortness of breath, Light-headed feeling Instructions: ED Chest Pain NonCardiac Referrals: Denisa Edmonds MD [Primary Care Provider] -
--- NOTE | 2020-03-16 00:04 | EKG12_ITS ---
Test Reason : GEN ILLNESS Blood Pressure : / mmHG Vent. Rate : 052 BPM Atrial Rate : 052 BPM P-R Int : 168 ms QRS Dur : 084 ms QT Int : 462 ms P-R-T Axes : 050 054 047 degrees QTc Int : 429 ms Sinus bradycardia Otherwise normal ECG Confirmed by MARLO PETIT, LISA ([id number]), general expeditor MARY POON ([id number]) on 03/19/2020 9:23:09 AM Referred By: ZULMA Confirmed By:LISA SELLERS MD
--- NOTE | 2020-03-16 00:04 | RAD_ITS ---
STUDY: X-RAY CHEST REASON FOR EXAM: Female, 19 years old. Chest pain and shortness of breath. [place] as if was going to pass out earlier today. TECHNIQUE: Single frontal view of the chest. COMPARISON: None. FINDINGS: The lungs are clear and expanded. There is no demonstrated pleural abnormality. Normal size heart. Normal mediastinum and laura. Normal visualized pulmonary arteries. Normal visualized aortic arch and descending thoracic aorta. Normal visualized thoracic spine. Normal visualized ribs, clavicles, and shoulders. There is no demonstrated abnormality of the visualized soft tissue structures of the upper abdomen. RAD/Chest 1 View (Portable) IMPRESSION: Normal x-ray examination of the chest. Electronically Signed: Hugh Briscoe MD at 0:56 EDT Tel , Service support ,
[2020-03-16 00:58] LABS: Absolute Lymphocyte Count 2.97 X10^3/uL (0.83-4.51); Absolute Neutrophil Count 5.2 X10^3/uL (2.0-7.7); Basophil# 0.05 X10^3/uL; Basophil% 0.6 % (0-1); Eosinophils% 1.1 % (0-5); Hematocrit 42.5 % (37-47); Hemoglobin 13.9 g/dL (12.0-15.0); Lymphocyte # 2.97 X10^3/ul (4.0); Lymphocyte % 32.8 % (19-41); Mean Corp Hgb Conc 32.7 g/dL (32-36); Mean Corpuscular Hgb 28.7 pg (27.0-32.0); Mean Corpuscular Volume 87.6 fL (81-99); Mean Platelet Vol. 10.2 fl (6.2-12.0); Monocyte# 0.73 X10^3/uL; Monocyte% 8.1 % (0-10); NRBC Flagged by Analyzer 0 % (0-5); Neutrophil # 5.17 X10^3/uL (2.7-7.7); Platelet Count 315 K/mm3 (150-450); RBC Distribution Width SD 41.3 fl (35.1-43.9); Red Blood Count 4.85 M/mm3 (4.2-5.4); White Blood Count 9.1 K/mm3 (4.4-11.0)
[2020-03-16 01:00] LABS: D-Dimer Quantitative (DVT/PE) 0.41 FEU/ug/m (0.27-0.49)
[2020-03-16 01:02] LABS: ALB/GLOB Ratio 1.2 RATIO (0.9-2.4); AST(SGOT) 21 U/L (15-37); Alanine Aminotransfer ALT/SGPT 25 U/L (13-56); Albumin, Serum 4.3 g/dL (3.2-5.0); Alkaline Phosphatase 76 U/L (45-117); Anion Gap 4 (5-15); BUN 13 mg/dL (7-18); Calcium,Total 9.2 mg/dL (8.5-10.1); Chloride 110 mmol/L (98-107); Creatinine, Serum 0.81 mg/dL (0.55-1.02); EST Glomerular Filtration Rate 94 mL/min (>60); Est Glom Filt Rate - Afr Amer 114 mL/min (>60); Estimated Creatinine Clearance 114.82 ml/min; Globulin 3.6 g/dL (2.2-4.2); Glucose 92 mg/dL (74-106); Potassium 3.3 mmol/L (3.5-5.1); Protein, Total 7.9 g/dL (6.4-8.2); Sodium Level 142 mmol/L (136-145)
[2020-03-16] MEDS: Famotidine 20 MG Tablet PO (01:46)
[2020-03-16 01:47] VITALS: BP 114/69; PULSE 61; RESP 18; O2SAT 99
== END 2020-03-16 01:56 | disposition home or self-care (01) ==
PROVIDERS: Emergency Provider Student in an Organized Health Care Education/Training Program; PCP Internal Medicine
DX: R07.9 Chest pain, unspecified (principal); Z20.828 Contact with and (suspected) exposure to other viral communicable diseases; R05 Cough; R51 Headache; R06.02 Shortness of breath; R42 Dizziness and giddiness; Z79.3 Long term (current) use of hormonal contraceptives; Z79.899 Other long term (current) drug therapy
CPT/HCPCS: 71045; 80053; 84484; 85025; 85379; 87635; 93005; 99285; A4216; U0003

== ENCOUNTER → 2020-06-20 16:24 | Outpatient (CLI) | payer OTHER, SELFPAY ==
[2020-06-20 11:55] VITALS: BMI 26.4
--- NOTE | 2020-06-20 16:26 | US_ITS ---
STUDY: FIRST TRIMESTER OBSTETRICAL ULTRASOUND REASON FOR EXAM: Female, 20 years old dating LMP: 04/28/2020 TECHNIQUE: Transabdominal and Transvaginal TECHNICAL QUALITY: Adequate. PRIOR ULTRASOUND: None. FINDINGS: There is visualization of a single gestational sac in a normal intrauterine position. The mean sac diameter (MSD) measures 1.6 cm, indicating an estimated gestational age (EGA) of 6 weeks, 3 days. The gestational sac shape is within normal limits. There is a visualized yolk sac. The yolk sac measures 3.7 mm. The placenta is non-visualized. There is visualization of a live embryo. The crown-rump length (CRL) measures 4.1 mm, indicating an estimated gestational age (EGA) of 6 weeks, 2 days. There is demonstrated cardiac activity with a heart rate of 102 bpm. The estimated gestation age (EGA) by LMP is 7 weeks, 4 days. The estimated date of delivery (SANDRA) by LMP is 02/02/2021. The estimated gestation age (EGA) by US is 6 weeks, 2 days. The estimated date of delivery (SANDRA) by US is 02/11/2021 . The uterus measures 8.2 x 6.2 x 4.4 cm. There is no demonstrated uterine fibroid. The cervix is closed. The right ovary measures 3.2 x 2.2 x 2.5 cm. There is no right ovarian cyst. There is no visualized right adnexal mass or complex lesion. The left ovary measures 3.1 x 2.0 x 1.9. There is no left ovarian cyst. There is no visualized left adnexal mass or complex lesion. There is no fluid in the cul de sac. US/Init OB < 14Wks US IMPRESSION: Normal single live intrauterine gestation with ultrasound EGA of 6 weeks 2 days. Electronically Signed: Bertram Poole MD at 17:25 EDT , Service support ,
== END ==
PROVIDERS: PCP Internal Medicine; Referring Provider Obstetrics & Gynecology; Visit Provider Obstetrics & Gynecology
DX: O20.0 Threatened abortion (principal); Z3A.00 Weeks of gestation of pregnancy not specified
CPT/HCPCS: 76801

== ENCOUNTER → 2020-07-01 | Outpatient (CLI) | payer OTHER, SELFPAY ==
[2020-07-01 14:27] VITALS: BMI 26.7
[2020-07-01 19:16] LABS: Amphetamine Urine VISTA NEGATIVE (<1000 ng/mL); Barbiturate Urine VISTA NEGATIVE (< 200 ng/mL); Benzodiazepine Urine VISTA NEGATIVE (< 200 ng/mL); Cocaine Urine VISTA NEGATIVE (< 300 ng/mL); Ecstacy Urine VISTA NEGATIVE (< 500 ng/mL); Methadone Urine VISTA NEGATIVE (< 300 ng/mL); PCP Urine VISTA NEGATIVE (< 25 ng/mL); THC Urine VISTA NEGATIVE (< 50 ng/mL); Vista UDS pH Range 5
[2020-07-04 08:09] LABS: Chlamydia By Nucleic Acid AMP Negative (Negative)
[2020-07-04 10:57] LABS: Gonococcus By Nucleic Acid AMP Negative (Negative)
== END | disposition home or self-care (01) ==
LOC: LABSPEC 16:20
PROVIDERS: PCP Internal Medicine; Referring Provider Obstetrics & Gynecology; Visit Provider Obstetrics & Gynecology
DX: Z34.90 Encounter for supervision of normal pregnancy, unspecified, unspecified trimester (principal)
CPT/HCPCS: 80307; 87086; 87088; 87491; 87591

== ENCOUNTER → 2020-07-26 10:30 | Outpatient (CLI) | payer OTHER, SELFPAY ==
[2020-07-01 14:27] VITALS: BMI 26.7
[2020-07-26 12:09] LABS: NATERA MAILED SPECIMEN
== END ==
PROVIDERS: PCP Internal Medicine; Referring Provider Obstetrics & Gynecology; Visit Provider Obstetrics & Gynecology
DX: Z34.81 Encounter for supervision of other normal pregnancy, first trimester (principal)

== ENCOUNTER → 2020-08-01 13:29 | Outpatient (CLI) | payer OTHER, SELFPAY ==
[2020-08-01 13:05] VITALS: BMI 26.7
[2020-08-01 13:55] LABS: Absolute Lymphocyte Count 2.43 X10^3/uL (0.83-4.51); Basophil# 0.03 X10^3/uL; Basophil% 0.3 % (0-1); Eosinophil# 0.13 X10^3/uL; Eosinophils% 1.1 % (0-5); Hematocrit 38.9 % (37-47); Hemoglobin 12.7 g/dL (12.0-15.0); Lymphocyte # 2.43 X10^3/ul (4.0); Lymphocyte % 21.3 % (19-41); Mean Corp Hgb Conc 32.6 g/dL (32-36); Mean Corpuscular Hgb 29.3 pg (27.0-32.0); Mean Corpuscular Volume 89.6 fL (81-99); Mean Platelet Vol. 10.3 fl (6.2-12.0); Monocyte# 0.82 X10^3/uL; Monocyte% 7.2 % (0-10); NRBC Flagged by Analyzer 0 % (0-5); Neutrophil # 7.95 X10^3/uL (2.7-7.7); Neutrophil % 69.7 % (47-70); Platelet Count 259 K/mm3 (150-450); RBC Distribution Width CV 13.2 % (11.6-14.6); RBC Distribution Width SD 43.6 fl (35.1-43.9); Red Blood Count 4.34 M/mm3 (4.2-5.4); White Blood Count 11.4 K/mm3 (4.4-11.0)
[2020-08-01 15:25] LABS: HIV - WCH Non-Reactive (Nonreactive); Hepatitis B Surface Antigen Non-Reactive (Nonreactive); Hepatitis C Antibody Non-Reactive (Nonreactive); Rubella IgG Reactive (Nonreactive)
[2020-08-02 03:33] LABS: Rapid Plasmin Reagin (RPR) NONREACTIVE (NONREACTIVE)
== END ==
PROVIDERS: PCP Internal Medicine; Referring Provider Obstetrics & Gynecology; Visit Provider Obstetrics & Gynecology
DX: Z34.90 Encounter for supervision of normal pregnancy, unspecified, unspecified trimester (principal)
CPT/HCPCS: 36415; 85025; 86592; 86703; 86762; 86803; 86850; 86900; 86901; 87340

== ENCOUNTER → 2020-11-21 07:35 | Outpatient (CLI) | payer OTHER, SELFPAY ==
[2020-10-25 11:44] VITALS: BMI 27.6
[2020-11-21 07:53] LABS: Absolute Lymphocyte Count 1.81 X10^3/uL (0.83-4.51); Absolute Neutrophil Count 10.4 X10^3/uL (2.0-7.7); Basophil# 0.07 X10^3/uL; Basophil% 0.5 % (0-1); Eosinophil# 0.12 X10^3/uL; Eosinophils% 0.9 % (0-5); Hematocrit 36.8 % (37-47); Hemoglobin 12.5 g/dL (12.0-15.0); Lymphocyte # 1.81 X10^3/ul (4.0); Lymphocyte % 13.4 % (19-41); Mean Corpuscular Hgb 31.2 pg (27.0-32.0); Mean Corpuscular Volume 91.8 fL (81-99); Mean Platelet Vol. 10.4 fl (6.2-12.0); Monocyte% 6.6 % (0-10); NRBC Flagged by Analyzer 0 % (0-5); Neutrophil # 10.37 X10^3/uL (2.7-7.7); Neutrophil % 76.5 % (47-70); Platelet Count 203 K/mm3 (150-450); RBC Distribution Width CV 13.2 % (11.6-14.6); RBC Distribution Width SD 43.9 fl (35.1-43.9); Red Blood Count 4.01 M/mm3 (4.2-5.4); White Blood Count 13.6 K/mm3 (4.4-11.0)
[2020-11-21 08:06] LABS: Amphetamine Urine VISTA NEGATIVE (<1000 ng/mL); Barbiturate Urine VISTA NEGATIVE (< 200 ng/mL); Benzodiazepine Urine VISTA NEGATIVE (< 200 ng/mL); Cocaine Urine VISTA NEGATIVE (< 300 ng/mL); Ecstacy Urine VISTA NEGATIVE (< 500 ng/mL); Methadone Urine VISTA NEGATIVE (< 300 ng/mL); PCP Urine VISTA NEGATIVE (< 25 ng/mL); THC Urine VISTA NEGATIVE (< 50 ng/mL); Vista UDS pH Range 5
[2020-11-21 08:17] LABS: Glucose Challenge Gest 1H 50g 131 mg/dL (70-140)
[2020-11-21 10:10] LABS: Chlamydia Trachomatis by PCR Negative (Negative); Neisserai gonorrhoeae by PCR Negative (Negative); Probe Check PASS; Sample Adequacy Control PASS; Specimen Processing Control PASS
== END ==
LOC: PAVLAB 07:36
PROVIDERS: Obstetrics & Gynecology; PCP Internal Medicine; Referring Provider Obstetrics & Gynecology; Visit Provider Obstetrics & Gynecology
DX: Z34.90 Encounter for supervision of normal pregnancy, unspecified, unspecified trimester (principal)
CPT/HCPCS: 36415; 80307; 82950; 85025; 86850; 86900; 86901; 87086; 87088; 87491; 87591

== ENCOUNTER → 2020-12-10 12:17 | Outpatient (CLI) | payer OTHER, SELFPAY ==
[2020-12-10 11:39] VITALS: BMI 28.8
[2020-12-10 13:06] LABS: Absolute Lymphocyte Count 2.36 X10^3/uL (0.83-4.51); Absolute Neutrophil Count 10.5 X10^3/uL (2.0-7.7); Basophil# 0.05 X10^3/uL; Basophil% 0.3 % (0-1); Eosinophil# 0.15 X10^3/uL; Hematocrit 38.1 % (37-47); Hemoglobin 12.3 g/dL (12.0-15.0); Lymphocyte # 2.36 X10^3/ul (4.0); Lymphocyte % 16.5 % (19-41); Mean Corp Hgb Conc 32.3 g/dL (32-36); Mean Corpuscular Volume 92.9 fL (81-99); Mean Platelet Vol. 10.2 fl (6.2-12.0); Monocyte# 0.98 X10^3/uL; Monocyte% 6.8 % (0-10); NRBC Flagged by Analyzer 0 % (0-5); Neutrophil # 10.46 X10^3/uL (2.7-7.7); Neutrophil % 73.1 % (47-70); Platelet Count 226 K/mm3 (150-450); RBC Distribution Width CV 13.1 % (11.6-14.6); RBC Distribution Width SD 44.8 fl (35.1-43.9); White Blood Count 14.3 K/mm3 (4.4-11.0)
[2020-12-10 13:37] LABS: ALB/GLOB Ratio 0.7 RATIO (0.9-2.4); AST(SGOT) 14 U/L (15-37); Alanine Aminotransfer ALT/SGPT 21 U/L (13-56); Albumin, Serum 2.8 g/dL (3.2-5.0); Alkaline Phosphatase 98 U/L (45-117); Anion Gap 8 (5-15); BUN 10 mg/dL (7-18); BUN/Creat Ratio 15.7 RATIO (10-20); Calcium,Total 8.4 mg/dL (8.5-10.1); Chloride 108 mmol/L (98-107); Creatinine, Serum 0.64 mg/dL (0.55-1.02); EST Glomerular Filtration Rate 124 mL/min (>60); Est Glom Filt Rate - Afr Amer 150 mL/min (>60); Globulin 3.9 g/dL (2.2-4.2); Glucose 87 mg/dL (74-106); Potassium 3.7 mmol/L (3.5-5.1); Protein, Total 6.7 g/dL (6.4-8.2); Sodium Level 140 mmol/L (136-145)
[2020-12-10 17:29] LABS: Protein, Urine (Random) 36.1 mg/dL (<11.9); Protein:Creat Ratio 251 mg/g CRE (0-200)
== END ==
PROVIDERS: PCP Internal Medicine; Referring Provider Obstetrics & Gynecology; Visit Provider Obstetrics & Gynecology
DX: O26.899 Other specified pregnancy related conditions, unspecified trimester (principal); R51.9 Headache, unspecified; Z3A.00 Weeks of gestation of pregnancy not specified
CPT/HCPCS: 36415; 80053; 82570; 84156; 85025

== ENCOUNTER → 2020-12-24 13:54 | Outpatient (CLI) | payer OTHER, SELFPAY ==
[2020-12-16 10:40] VITALS: BMI 29.0
--- NOTE | 2020-12-24 13:56 | US_ITS ---
STUDY: SECOND AND THIRD TRIMESTER OBSTETRICAL ULTRASOUND - LIMITED REASON FOR EXAM: Female, 20 years old pelvic pain in LMP: 04/28/2020. PRIOR ULTRASOUND: None. TECHNIQUE: Transabdominal TECHNICAL QUALITY: Adequate. FINDINGS: There is a single intrauterine fetus. The fetus is in a cephalic presentation. There is demonstrated cardiac activity with a heart rate of 150 bpm. There is a normal amniotic fluid volume. The largest amniotic fluid pocket measures 5.8 cm x 4.9 cm. The amniotic fluid index (HECTOR) is 18.23 cm. The placenta is anterior in location and is not low lying. There are Grade 1 placental changes. The cervix was not evaluated at this time. The urinary bladder was empty. BIOMETRY: BPD: 8.31 cm: 33 weeks, 2 days HC: 30.85 cm: 34 weeks, 2 days AC: 30.51 cm: 34 weeks, 3 days FL: 6.77 cm: 34 weeks, 5 days Age by LMP: 34 weeks, 2 days. SANDRA by LMP: 02/02/2021. age by prior US: 32 weeks, 6 days. SANDRA by prior US: 02/12/2021. age by current US: 34 weeks, 0 days. SANDRA by current US: 02/04/2021. Estimated weight: 2446 grams, +/- 367 grams, 50.8 percentile. US/OB Limited With Biometrics IMPRESSION: Single live intrauterine gestation with a mean gestational age of 32 weeks and 6 days. The measurements obtained today fall within the normal expected range. Electronically Signed: Antwon Herrera MD at 15:42 EDT , Service support ,
== END ==
PROVIDERS: PCP Internal Medicine; Referring Provider Obstetrics & Gynecology; Visit Provider Obstetrics & Gynecology
DX: O26.899 Other specified pregnancy related conditions, unspecified trimester (principal); R10.2 Pelvic and perineal pain; Z3A.00 Weeks of gestation of pregnancy not specified
CPT/HCPCS: 76816

== ENCOUNTER 2021-01-01 12:08 | Emergency (ER) | payer OTHER, SELFPAY ==
[2020-12-16 10:40] VITALS: BMI 29.0
[2021-01-01 12:08] VITALS: BP 90/62; PULSE 127; RESP 15; TEMP 36.8; O2SAT 96; BMI 28.0
--- NOTE | 2021-01-01 12:35 | CT_ITS ---
STUDY: CTA CHEST REASON FOR EXAM: Female, 20 years old. PE. Intermittent chest pain. The patient is . Appropriate shielding was obtained. RADIATION DOSAGE (If Supplied By Facility): CTDIvol = ( 8.78 ) mGy, DLP = ( 314.49 ) mGycm TECHNIQUE: The examination was performed with the intravenous administration of IV 100mL Isovue-370. Post-processing of the angiographic images was performed, with multiplanar reformation and 3D reconstruction. Individualized dose optimization techniques were used for this CT. COMPARISON: None. FINDINGS: Normal enhancement of the main pulmonary artery and right and left pulmonary arteries. Normal enhancement of the bilateral peripheral pulmonary arteries. There is no demonstrated pulmonary embolism. Normal thoracic aorta and visualized great vessels. There is no demonstrated aortic dissection. Normal heart and pericardium. Normal mediastinum. Normal hilar regions. Normal visualized trachea and bronchi. The lungs are well expanded. Normal pulmonary parenchyma. Normal pleura. Normal chest wall structures. Normal osseous structures. Normal visualized upper abdomen. CT/CTA Chest W/WO Contrast IMPRESSION: Normal CTA chest examination, without a demonstrated pulmonary embolism or arterial dissection. Electronically Signed: Antwon Herrera MD at 13:52 EDT , Service support ,
--- NOTE | 2021-01-01 12:36 | EKG12_ITS ---
Test Reason : CHEST PAIN Blood Pressure : / mmHG Vent. Rate : 134 BPM Atrial Rate : 134 BPM P-R Int : 138 ms QRS Dur : 076 ms QT Int : 302 ms P-R-T Axes : 071 091 053 degrees QTc Int : 450 ms Sinus tachycardia Otherwise normal ECG Confirmed by MARLO PETIT, LISA ([id number]), cooler service supervisor MARY POON ([id number]) on 01/06/2021 12:28:57 PM Referred By: MR Confirmed By:LISA SELLERS MD
[2021-01-01 12:40] VITALS: BP 100/52; PULSE 132; RESP 18; O2SAT 97
[2021-01-01 12:44] LABS: Absolute Lymphocyte Count 0.69 X10^3/uL (0.83-4.51); Absolute Neutrophil Count 7.5 X10^3/uL (2.0-7.7); Basophil# 0.06 X10^3/uL; Basophil% 0.6 % (0-1); Eosinophil# 0.09 X10^3/uL; Eosinophils% 0.9 % (0-5); Hematocrit 36.1 % (37-47); Hemoglobin 11.7 g/dL (12.0-15.0); Lymphocyte # 0.69 X10^3/ul (0.83-4.51); Lymphocyte % 7.2 % (19-41); Mean Corp Hgb Conc 32.4 g/dL (32-36); Mean Corpuscular Hgb 29.7 pg (27.0-32.0); Mean Corpuscular Volume 91.6 fL (81-99); Mean Platelet Vol. 10.1 fl (6.2-12.0); Monocyte# 0.96 X10^3/uL; NRBC Flagged by Analyzer 0 % (0-5); Neutrophil # 7.47 X10^3/uL (2.7-7.7); Neutrophil % 78.1 % (47-70); Platelet Count 175 K/mm3 (150-450); RBC Distribution Width CV 12.8 % (11.6-14.6); RBC Distribution Width SD 42.4 fl (35.1-43.9); Red Blood Count 3.94 M/mm3 (4.2-5.4); White Blood Count 9.6 K/mm3 (4.4-11.0)
[2021-01-01] MEDS: Aspirin 81 MG TAB.CHEW 324 MG PO (12:45)
[2021-01-01 13:01] LABS: Anion Gap 6 (5-15); BUN 6 mg/dL (7-18); BUN/Creat Ratio 9.4 RATIO (10-20); Calcium,Total 8.5 mg/dL (8.5-10.1); Chloride 109 mmol/L (98-107); Creatinine, Serum 0.64 mg/dL (0.55-1.02); EST Glomerular Filtration Rate 123 mL/min (>60); Est Glom Filt Rate - Afr Amer 149 mL/min (>60); Estimated Creatinine Clearance 144.09 ml/min; Glucose 113 mg/dL (74-106); Potassium 3.6 mmol/L (3.5-5.1); Sodium Level 138 mmol/L (136-145)
[2021-01-01 13:47] VITALS: BP 114/69; PULSE 112; RESP 14; O2SAT 99
[2021-01-01 14:19] VITALS: BP 112/69; PULSE 104; RESP 16; O2SAT 98
--- NOTE | 2021-01-01 14:22 | EX.ED.DYSGE1 ---
HPI History of Present Illness Chief Complaint: Chest Pain Narrative Narrative: Patient is presenting with chest pain. She is 32 weeks and has sharp stabbing pain throughout. She gets period of pain the last 30 seconds and take about 5 to 10 minutes to slowly get away. There seems to be no pleuritic component no back pain or tearing sensation she does have some palpitations with this. She has a history of tachycardia a few years ago after her first . No history of preeclampsia or eclampsia. No prior DVT or PE. No cough congestion fever or chills. [facility] Medical History (Updated 01/01/21 @ 14:[address] Jona Pinzon MD) Anxiety Depression Home Medications multivitamin no.47-iron fum 27 mg-folate no.1 1 mg-dha 300 mg capsule 1 cap PO DAILY cap 03/17/19 [History Last Taken 07/23/19 18:00] famotidine 20 mg tablet 20 mg PO DAILY 08/01/20 [History Last Taken Unknown] acetaminophen 325 mg capsule 325 mg PO ONCE PRN 12/10/20 [History Last Taken Unknown] promethazine 12.5 mg tablet 12.5 mg PO Q6H PRN #60 tablet 12/10/20 [Rx Last Taken Unknown] cyclobenzaprine 10 mg tablet 10 mg PO TID PRN #30 tablet 12/16/20 [Rx Last Taken Unknown] sertraline 100 mg tablet 100 mg PO DAILY #30 tablet 12/16/20 [Rx Last Taken Unknown] Allergy/AdvReac Type Severity Reaction Status Date / Time No Known Allergies Allergy Verified 01/01/21 12:08 Family History Father Diabetes Surgical History History of cholecystectomy Social History adopted: No household members: family housing: house current occupational status: employed 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 [employer] current occupational exposures/hazards: No pets and animals: Yes history of recent travel: Yes sexually active: Yes Smoking Status: Never smoker second hand exposure: No alcohol intake: current alcohol intake frequency: holidays/special occasions only substance use type: does not use seatbelt use: always do you feel safe at home: Yes additional social history: Spouse- Eliceo- sebastien torress, countertops christin acevedo salesperson [employer] ROS ROS ED ROS Narrative Past medical history: Reviewed as in HPI Medications: Reviewed Social history: Noncontributory Review of systems: All systems negative except as indicated General: No fever Eyes: No visual changes ENT: No upper airway congestion, normal voice Neck: No neck pain Cardiovascular: Chest pain and palpitations as in HPI Respiratory: No shortness of breath or cough Gastrointestinal: No abdominal pain, nausea vomiting or diarrhea. She did have some [place] contractions but they are now gone Genitourinary: No dysuria. No vaginal bleeding. Musculoskeletal: Denies myalgias no difficulty with ambulation Skin: No rash Neurological: No memory loss, confusion or any focal weakness Psych: No recent behavioral changes Hematologic: No easy bleeding or easy bruising EXAM Physical Exam Narrative Exam Narrative: Physical exam General: Well nourished, Well developed, No Acute Distress Head: Normocephalic, Atraumatic Eyes: Conjunctiva not pale ENT: Moist mucous membranes Neck: Supple, Nontender, No lymphadenopathy Cardiovascular: Regular rhythm. Tachycardia. No obvious murmur Respiratory: No distress, CTA bilaterally Abdomen: Soft, Nontender, Nondistended Back: Nontender, Normal Inspection. Negative for: CVA tenderness Extremities: Nontender, No edema Skin: Normal color, No rash Neurological: Alert, Normal Strength, Normal Sensation Psychological: Normal affect Const Vital Signs: 01/01/21 12:08 01/01/21 12:40 01/01/21 13:47 Temperature 98.2 F Temperature Source Temporal Pulse Rate 127 H 132 H 112 H Respiratory Rate 15 18 14 Respiratory Effort Normal Respiratory Pattern Normal Blood Pressure 90/62 100/52 L 114/69 Blood Pressure Mean 71 68 84 Pulse Ox 96 97 99 Oxygen Delivery Method Room Air Room Air Nasal Cannula Oxygen Flow Rate (L/min) 2 01/01/21 14:19 Temperature Temperature Source Pulse Rate 104 H Respiratory Rate 16 Respiratory Effort Respiratory Pattern Blood Pressure 112/69 Blood Pressure Mean 83 Pulse Ox 98 Oxygen Delivery Method Nasal Cannula Oxygen Flow Rate (L/min) 2 [facility] Lab Data Labs: Laboratory Results - last 24 hr 01/01/21 01/01/21 12:36 12:36 WBC 9.6 RBC 3.94 L Hgb 11.7 L Hct 36.1 L MCV 91.6 MCH 29.7 MCHC 32.4 RDW Std Deviation 42.4 RDW Coeff of Michael 12.8 Plt Count 175 MPV 10.1 Immature Gran % (Auto) 3.200 H Neut % (Auto) 78.1 H Lymph % (Auto) 7.2 L Gall[place] % (Auto) 10.0 Eos % (Auto) 0.9 Baso % (Auto) 0.6 Absolute Neuts (auto) 7.5 Absolute Lymphs (auto) 0.69 L Nucleated RBC % 0 Sodium 138 Potassium 3.6 Chloride 109 H Carbon Dioxide 23.0 Anion Gap 6 BUN 6 L Creatinine 0.64 Estim Creat Clear Calc 144.09 Est GFR (MDRD) Af Amer 149 Est GFR (MDRD) Non-Af 123 BUN/Creatinine Ratio 9.4 L Glucose 113 H Calcium 8.5 Troponin I < 0.015 Patient's heart rate significantly improved. It is now 104 with normal blood pressure she may have been slightly dehydrated. I discussed with cardiology who agrees that the patient should not be placed on any AV delia blocking agents. We will push fluids and follow-up otherwise patient will be discharged in stable condition. Radiography Diagnostic Testing: Radiology Impression Chest CTA 01/01/21 12:35 IMPRESSION: Normal CTA chest examination, without a demonstrated pulmonary embolism or arterial dissection. Electronically Signed: Antwon Herrera MD at 13:52 EDT , Service support , Discharge Plan Triage Chief Complaint: Chest Pain ED Provider: Jona Pinzon Dx/Rx/DC Orders Clinical Impression: Chest pain, Tachycardia Instructions: ED Chest Pain, Noncardiac Prescriptions: No Action PNV-DHA 27 mg iron-1 mg -300 mg capsule 1 cap PO DAILY RF: 0 famotidine [Pepcid] 20 mg tablet 20 mg PO DAILY RF: 0 sertraline 100 mg tablet 100 mg PO DAILY Qty: 30 RF: 12 cyclobenzaprine 10 mg tablet 10 mg PO TID PRN (Reason: muscle spasm) Qty: 30 RF: 2 acetaminophen [Tylenol] 325 mg capsule 325 mg PO ONCE PRNRF: 0 promethazine 12.5 mg tablet 12.5 mg PO Q6H PRN (Reason: nausea and vomiting) Qty: 60 RF: 4 Primary Care Provider: Denisa Edmonds: Arya Clarke MD [STAFF PHYSICIAN] - 2 Days Denisa Edmonds MD [Primary Care Provider] -
[2021-01-01] MEDS: 0.9% Normal Saline 1,000 ML 999 ML IV (14:50)
[2021-01-01 15:10] VITALS: BP 101/60; PULSE 97; RESP 16; O2SAT 100
[2021-01-01 15:58] VITALS: BP 101/55; PULSE 107; RESP 23; O2SAT 100
== END 2021-01-01 15:59 | disposition home or self-care (01) ==
LOC: ED 12:55
PROVIDERS: Emergency Provider Emergency Medicine; PCP Internal Medicine
DX: O26.893 Other specified pregnancy related conditions, third trimester (principal); R07.89 Other chest pain; R00.0 Tachycardia, unspecified; O99.343 Other mental disorders complicating pregnancy, third trimester; F32.9 Major depressive disorder, single episode, unspecified; F41.9 Anxiety disorder, unspecified; Z3A.32 32 weeks gestation of pregnancy; Z79.899 Other long term (current) drug therapy
CPT/HCPCS: 71275; 80048; 84484; 85025; 87426; 93005; 96360; 99284; J7030; Q9967; A4216

== ENCOUNTER 2021-01-03 09:40 | Emergency (ER) | payer OTHER, SELFPAY ==
[2021-01-03 09:41] VITALS: BP 123/97; PULSE 123; RESP 16; TEMP 36.4; O2SAT 97; BMI 28.0
--- NOTE | 2021-01-03 10:18 | EX.ED.DYSGE1 ---
HPI History of Present Illness Chief Complaint: Shortness of Breath Informant: patient Narrative Narrative: Patient is a 20-year-old female G2, P1 currently 34 weeks presenting with sore throat and throat swelling. Patient states she woke up last night and felt that her throat was sore. She states today she feels her throat is starting to swell up on the inside and she is worried her babies not get enough oxygen. She called her AGRICULTURE DEPARTMENT CHAIR who was concerned that she had a false negative Covid test 2 days ago and recommend she come back to the emergency room to be evaluated for Covid before going to labor and delivery. Patient has a past 2 days she is having increased low back pain, pelvic pressure and has had some possible leakage of fluids. She still feeling the baby move today but feels that she is having decreased activity today. Patient [place] any vaginal bleeding. She denies any abdominal pain. She denies any fever. She was seen in the ER for chest pain 2 days ago. She notes the chest pain has resolved. She does have a cough that is minimally productive of sputum. She is having some ear pain as well. Patient denies any difficulty breathing. Patient did have a normal CTA of her chest 2 days ago. [facility] Medical History (Updated 01/03/21 @ 11:[address] Rayne Manrique, DO) Anxiety Depression Home Medications multivitamin no.47-iron fum 27 mg-folate no.1 1 mg-dha 300 mg capsule 1 cap PO DAILY cap 03/17/19 [History Last Taken 07/23/19 18:00] famotidine 20 mg tablet 20 mg PO DAILY 08/01/20 [History Last Taken Unknown] acetaminophen 325 mg capsule 325 mg PO ONCE PRN 12/10/20 [History Last Taken Unknown] promethazine 12.5 mg tablet 12.5 mg PO Q6H PRN #60 tablet 12/10/20 [Rx Last Taken Unknown] cyclobenzaprine 10 mg tablet 10 mg PO TID PRN #30 tablet 12/16/20 [Rx Last Taken Unknown] sertraline 100 mg tablet 100 mg PO DAILY #30 tablet 12/16/20 [Rx Last Taken Unknown] Allergy/AdvReac Type Severity Reaction Status Date / Time No Known Allergies Allergy Verified 01/03/21 09:41 Family History (Updated 01/03/21 @ 10:45 by Naz Cuellar) Father Diabetes Other Cholecystectomy planned Surgical History History of cholecystectomy Social History adopted: No household members: family housing: house current occupational status: employed 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 current occupational exposures/hazards: No pets and animals: Yes history of recent travel: Yes sexually active: Yes Smoking Status: Never smoker second hand exposure: No alcohol intake: current alcohol intake frequency: holidays/special occasions only substance use type: does not use seatbelt use: always do you feel safe at home: Yes additional social history: Spouse- Eden [employer], countertops adihorantonio acevedo colors custodian ROS ROS ED Constitutional Constitutional ED: Reports chills; Denies fever(s) Eyes Eyes: Denies change in vision ENT ENT ED: Reports ear pain, rhinorrhea and sore throat Cardiovascular Cardiovascular: Denies chest pain, palpitations or racing heartbeat Respiratory/Chest Respiratory/Chest: Reports cough and dyspnea on exertion; Denies dyspnea Gastrointestinal Gastrointestinal: Denies abdominal pain, nausea or vomiting Genitourinary Genitourinary ED: Denies dysuria or hematuria Musculoskeletal Musculoskeletal: Denies arthralgias or myalgias Integumentary Denies rash Neurologic Neurologic: Denies headache(s) or weakness Psychiatric Psychiatric: Denies depression EXAM Physical Exam Const Vital Signs: 01/03/21 09:41 01/03/21 10:25 Temperature 97.5 F L 97.5 F L Temperature Source Temporal Temporal Pulse Rate 123 H 118 H Respiratory Rate 16 15 Respiratory Effort Short of Breath Labored Respiratory Depth Deep Respiratory Pattern Tachypnea Blood Pressure 123/97 H 108/61 Blood Pressure Mean 105 76 Pulse Ox 97 97 Oxygen Delivery Method Room Air Room Air Positive well nourished, well developed and no apparent distress General Appearance ED: well developed HEENT Reports normocephalic and moist mucous membranes atraumatic Nose: nasal mucous membranes and turbinates normal and no nasal discharge External Ear: external ears normal Tympanic Membrane: TM abnormal bilateral and other Other Details: Mild injection of the tympanic membrane and serous fluid behind the left tympanic membrane. Mouth ED: Yes tongue normal, Yes moist mucous membranes abnormal and No trismus Mouth: tongue normal, moist mucous membranes abnormal and No trismus Throat: posterior oropharynx normal; Negative for uvula laterally displaced, uvular edema or hoarseness Eyes PERRL and EOMs intact bilaterally Neck full ROM, supple, no meningeal signs and no JVD Chest Wall inspection of chest normal Resp normal respiratory effort and normal air movement Resp Narrative: No stridor appreciated Effort and Inspection: Negative for retractions Auscultation: rhonchi; Negative for wheezes or diminished lung sounds Cardio regular rate and regular rhythm GI normal to inspection, nondistended, normoactive bowel sounds GI Narrative: Gravid abdomen consistent with 34 weeks gestation Extremity normal to inspection and full ROM Neuro oriented x3 and no focal motor deficits Psych mental status grossly normal and thought process normal Skin no rashes or lesions noted and no wounds MDM MDM MDM Narrative Medical decision making narrative: Patient evaluated for sensation of throat swelling and known Covid exposure. She has some mild shortness of breath but feels it more because she feels that she cannot breathe because her throat feels swollen. Patient is not having any stridor. She does not have any angioedema or significant swelling of her oropharynx or mouth noted. Lung sounds are slightly rhonchorous but otherwise clear. She is tachycardic however patient was seen 2 days ago and was tachycardic at that time as well. She notes she is very anxious. She is given Tylenol in the ER. Covid test is ordered which is positive. I suspect patient has a viral pharyngitis secondary to COVID-19 infection. Patient is also complaining of pelvic pressure, possible leakage of fluids and low back pain. I think she needs to be evaluated by AGRICULTURE DEPARTMENT CHAIR for possible labor. Discussed with OB on-call, Dr. Pro shah, who is aware of her Covid 19 diagnosis and agreeable. She is agreeable with me giving a dose of Decadron for pharyngitis to help with her upper respiratory symptoms. Patient is not hypoxic. I do not think she has developed an acute pneumonia. She was seen and evaluated thoroughly for chest discomfort 2 days ago. I do not think she needs repeat cardiac evaluation or repeat evaluation for PE at this time. Patient is discharged from the ER to go to OB triage. Patient does have normal heart tones in the ER. Treatment and Re-Evaluation Comments:: Tylenol Covid test positive Discharged OB triage Discharge Plan Triage Chief Complaint: Shortness of Breath ED Provider: Rayne Manrique Dx/Rx/DC Orders Clinical Impression: COVID-19 virus infection, Pharyngitis Instructions: Coronavirus Disease 2019 (COVID-19): Caring for Yourself or Others, ED Pharyngitis, Report Pending Prescriptions: No Action PNV-DHA 27 mg iron-1 mg -300 mg capsule 1 cap PO DAILY RF: 0 famotidine [Pepcid] 20 mg tablet 20 mg PO DAILY RF: 0 sertraline 100 mg tablet 100 mg PO DAILY Qty: 30 RF: 12 cyclobenzaprine 10 mg tablet 10 mg PO TID PRN (Reason: muscle spasm) Qty: 30 RF: 2 acetaminophen [Tylenol] 325 mg capsule 325 mg PO ONCE PRN (Reason: Pain) RF: 0 promethazine 12.5 mg tablet 12.5 mg PO Q6H PRN (Reason: nausea and vomiting) Qty: 60 RF: 4 Primary Care Provider: Denisa Edmonds Referrals: Denisa Edmonds MD [Primary Care Provider] - Activity Restrictions/Additional Instructions: You have COVID-19 which is likely caused you to have pharyngitis, sore throat. He was given a dose of steroids to help with that. Take Tylenol as needed for associated symptoms. Please go directly to OB triage so that out the baby can be checked on as well. Disposition Disposition: Home, self care
[2021-01-03 10:25] VITALS: BP 108/61; PULSE 118; RESP 15; TEMP 36.4; O2SAT 97; O2SAT 98
[2021-01-03] MEDS: Acetaminophen 500 MG Tablet 1000 MG PO (10:29)
[2021-01-03 11:48] VITALS: BP 106/64; PULSE 91; RESP 20; TEMP 37.3; O2SAT 96
[2021-01-03] MEDS: dexAMETHasone 10 MG/ML Vial PO.IVFORM (11:54)
[2021-01-03 11:58] VITALS: BP 106/76; PULSE 81; RESP 20; O2SAT 98
--- NOTE | 2021-01-03 12:10 | ED.RN ---
THIS RN CALLED REPORT TO OB NURSE VIKASH. PT PLACED IN WHEELCHAIR D/C FROM MONITOR AND TAKEN TO OB BY THIS RN. IV STILL IN PLACE ON TRANSFER TO OB.
== END 2021-01-03 12:12 | disposition home or self-care (01) ==
PROVIDERS: Emergency Provider Emergency Medicine; PCP Internal Medicine
DX: O98.513 Other viral diseases complicating pregnancy, third trimester (principal); U07.1 COVID-19; J02.9 Acute pharyngitis, unspecified; O99.343 Other mental disorders complicating pregnancy, third trimester; F32.9 Major depressive disorder, single episode, unspecified; F41.9 Anxiety disorder, unspecified; Z3A.34 34 weeks gestation of pregnancy; Z79.899 Other long term (current) drug therapy
CPT/HCPCS: 87426; 87880; 99284; A4216

== ENCOUNTER 2021-01-03 12:03 | Outpatient (CLI) | payer OTHER, SELFPAY ==
[2021-01-03 09:41] VITALS: BMI 28.0
[2021-01-03 12:10] VITALS: BMI 28.9
[2021-01-03 12:19] VITALS: BP 107/56; PULSE 81
[2021-01-03 12:47] LABS: ROM Internal Control Test YES-OK TO RESULT pt. (Internal QC); ROM Patient Test Negative (Negative)
--- NOTE | 2021-01-03 12:58 | NURSING ---
dr Martel's office notified of Neg Rom plus. NST reactive.
--- NOTE | 2021-01-06 13:02 | OB.TRI.PN_ITS ---
Progress Notes Date of Service: 01/03/21 Progress Note: Patient presents for triage evaluation secondary to LOF and decreased movement. Patient reported these symptoms while being seen in the ER for COVID. ROM negative. Given course of PO steroids at discharge for COVID symptoms. FHT: Moderate variability reactive no decelerations category I tracing [place]: Contractions Assessment and plan: Reactive NST, reassuring maternal and status patient discharged to home to follow-up at next scheduled visit. See problem list details for additional plan information. Laboratory Studies: Laboratory Tests 01/03/21 Range/Units 12:22 Vag Amniotic Fld Detect Negative (Negative) Multi Select Codes Urinary/Genital Urinary/Genital CPT Codes: 51707-73 non-stress test Interp
== END 2021-01-03 13:26 | disposition home or self-care (01) ==
LOC: WPOUT 12:07 → WP 12:07
PROVIDERS: PCP Internal Medicine; Visit Provider Obstetrics & Gynecology
DX: O36.8190 Decreased fetal movements, unspecified trimester, not applicable or unspecified (principal); Z3A.00 Weeks of gestation of pregnancy not specified
CPT/HCPCS: 59025; 59050; 84112; 99218; G0378

== ENCOUNTER → 2021-01-15 08:51 | Outpatient (CLI) | payer OTHER, SELFPAY ==
[2021-01-03 12:10] VITALS: BMI 28.9
[2021-01-13 10:08] VITALS: BMI 29.9
--- NOTE | 2021-01-15 08:55 | US_ITS ---
STUDY: SECOND AND THIRD TRIMESTER OBSTETRICAL ULTRASOUND-LIMITED REASON FOR EXAM: Female, 20 years old growth LMP: 04/28/2020 TECHNIQUE: Transabdominal TECHNICAL QUALITY: Adequate. PRIOR ULTRASOUND: 12/24/2020 FINDINGS: There is a single intrauterine fetus. The fetus is in a cephalic presentation. There is demonstrated cardiac activity with a heart rate of 123 bpm. There is a normal amniotic fluid volume. The largest amniotic fluid pocket measures 7.9 cm. The amniotic fluid index (HECTOR) is 18.2 cm. The placenta is anterior in location and is not low lying. There are Grade 2 placental changes. The cervix was not visualized BIOMETRY: BPD: 8.47 cm: 34 weeks, 0 days HC: 10.9 cm: 34 weeks, 6 days AC: 34.7 cm: 38 weeks, 4 days FL: 7.1 cm: 36 weeks, 1 days age by current US: 35 weeks, 5 days. SANDRA by current US: 02/14/2021. Estimated weight: 3180 grams, +/- 477 grams, 81 %. age by prior US: 32 weeks, 6 days. SANDRA by prior US: 02/02/2021. Age by LMP: 36 weeks, 1 days. SANDRA by LMP: 02/11/2021. US/OB Limited With Biometrics IMPRESSION: Single live intrauterine at 35 weeks, 5 days on current ultrasound with SANDRA of 02/14/2021. There is a due date discrepancy between this current study and the previous study performed on 12/24/2020. On that study, SANDRA was 02/02/2021. There is no sonographic etiology to explain the due date discrepancy in the evaluation of the fetus. Aside from the due date discrepancy, there is no sonographic evidence of abnormality Electronically Signed: Darren Joyner MD at 10:03 EDT , Service support ,
== END ==
PROVIDERS: PCP Internal Medicine; Referring Provider Obstetrics & Gynecology; Visit Provider Obstetrics & Gynecology
DX: O98.519 Other viral diseases complicating pregnancy, unspecified trimester (principal); U07.1 COVID-19; Z3A.00 Weeks of gestation of pregnancy not specified
CPT/HCPCS: 76816

== ENCOUNTER → 2021-01-20 11:54 | Outpatient (CLI) | payer OTHER, SELFPAY ==
[2021-01-20 11:30] VITALS: BMI 29.9
[2021-01-20 12:16] LABS: ROM Internal Control Test YES-OK TO RESULT pt. (Internal QC)
[2021-01-20 12:17] LABS: ROM Patient Test Negative (Negative)
== END ==
PROVIDERS: PCP Internal Medicine; Visit Provider Obstetrics & Gynecology
DX: Z34.80 Encounter for supervision of other normal pregnancy, unspecified trimester (principal); N89.8 Other specified noninflammatory disorders of vagina
CPT/HCPCS: 84112; 87081

== ENCOUNTER 2021-01-22 17:05 | Outpatient (CLI) | payer OTHER, SELFPAY ==
[2021-01-20 11:30] VITALS: BMI 29.9
[2021-01-22 17:18] VITALS: BMI 30.7
[2021-01-22 17:23] VITALS: BP 124/61; PULSE 100; TEMP 37.2
[2021-01-22 17:58] LABS: ROM Internal Control Test YES-OK TO RESULT pt. (Internal QC); ROM Patient Test Negative (Negative)
--- NOTE | 2021-01-25 10:24 | OB.TRI.PN_ITS ---
Progress Notes Date of Service: 01/22/21 Progress Note: Patient presents for triage evaluation secondary to loss of fluid FHT: Moderate variability reactive no decelerations category I tracing [place]: Contractions Assessment and plan: ROM negative. Reactive NST, reassuring maternal and status patient discharged to home to follow-up at next scheduled visit. See problem list details for additional plan information. Laboratory Studies: Laboratory Tests 01/22/21 Range/Units 17:15 Vag Amniotic Fld Detect Negative (Negative) Procedures Urinary/Genital 52xxx-59xxx: 25272-49 non-stress test Interp
== END 2021-01-22 18:15 | disposition home or self-care (01) ==
LOC: WPOUT 17:11 → WP 17:12
PROVIDERS: PCP Internal Medicine; Referring Provider Obstetrics & Gynecology; Visit Provider Obstetrics & Gynecology
DX: Z03.71 Encounter for suspected problem with amniotic cavity and membrane ruled out (principal)
CPT/HCPCS: 84112

== ENCOUNTER 2021-01-22 20:55 | Inpatient (IN) | payer OTHER, SELFPAY ==
[2021-01-22] VITALS (35 sets, daily range): BP systolic 101–122; BP diastolic 56–71; PULSE 70–95; TEMP 36.8–37; O2SAT 97–99; BMI 30.7; BMI 30.8
[2021-01-22] MEDS: Lactated Ringers 1,000 ML 50 ML IV (21:20)
[2021-01-22 21:32] LABS: Absolute Lymphocyte Count 2.34 X10^3/uL (0.83-4.51); Absolute Neutrophil Count 7.5 X10^3/uL (2.0-7.7); Basophil# 0.06 X10^3/uL; Basophil% 0.5 % (0-1); Eosinophil# 0.11 X10^3/uL; Hematocrit 33.7 % (37-47); Hemoglobin 11.3 g/dL (12.0-15.0); Lymphocyte # 2.34 X10^3/ul (0.83-4.51); Lymphocyte % 20.6 % (19-41); Mean Corp Hgb Conc 33.5 g/dL (32-36); Mean Corpuscular Hgb 30.6 pg (27.0-32.0); Mean Corpuscular Volume 91.3 fL (81-99); Mean Platelet Vol. 10.6 fl (6.2-12.0); Monocyte# 1.12 X10^3/uL; Monocyte% 9.9 % (0-10); NRBC Flagged by Analyzer 0 % (0-5); Neutrophil # 7.54 X10^3/uL (2.7-7.7); Neutrophil % 66.2 % (47-70); Platelet Count 210 K/mm3 (150-450); RBC Distribution Width CV 13.2 % (11.6-14.6); RBC Distribution Width SD 42.4 fl (35.1-43.9); Red Blood Count 3.69 M/mm3 (4.2-5.4); White Blood Count 11.4 K/mm3 (4.4-11.0)
[2021-01-22] MEDS: Lactated Ringers 500 ML 999 ML IV ×2 (21:47→23:16)
[2021-01-22 22:47] LABS: Group B Strep DNA By PCR Negative (Negative); Internal Control PASS; Probe Check PASS; Specimen Processing Control PASS
--- NOTE | 2021-01-22 22:54 | HP.PCM.OB_ITS ---
HPI - General General Date of Admission: 01/22/21 HPI Narrative OSWALDO PRICE, is a 20 F at 37 weeks who presents in active labor. Maternal Data Information SNADRA Calculator Estimated Delivery Date Method Current WG Current Estimate 02/11/21 Ultrasound #1 37w 1d Other Estimates 02/03/21 LMP (Certain) 38w 2d [facility] Medical History (Updated 01/22/21 @ 22:[address] Jeniffer Martel MD) Anxiety Depression depression Home Medications multivitamin no.47-iron fum 27 mg-folate no.1 1 mg-dha 300 mg capsule 1 cap PO DAILY cap 03/17/19 [History Last Taken 01/21/21 21:00] sertraline 100 mg tablet 100 mg PO DAILY #30 tablet 12/16/20 [Rx Last Taken 01/21/21 21:00] Allergy/AdvReac Type Severity Reaction Status Date / Time No Known Allergies Allergy Verified 01/22/21 17:19 Family History Father Diabetes Other Cholecystectomy planned Surgical History History of cholecystectomy Social History adopted: No household members: family housing: house current occupational status: employed 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 Date Name GA/Weeks Outcome Route Bth Weight Infant Gen Labor Lgth Anesthesia Del Locatn Provider FOB Unknown 2018 Garcia 38 live - full term vacuum Male [facility] Visit Details Expected Delivery Route/Plan Labor Preferences- CB/BF classes: no labor support person: Eliceo labor intervention preferences: [] pain management options preferred: epidural cut cord/dad catch: yes : yes PP control planned: discussed options. Likes IUD discussed possible routes of delivery and associated risks: [] special requests: [] Plans flu vaccine: decline tdap vaccine: given rhogam: given LARC form signed: yes movement and labor precautions reviewed. Problem list reviewed and updated with the most current plan of care details and appropriate orders placed. Relevant counseling for the gestational age provided. Continue routine care and follow up unless otherwise noted in visit notes/problem list details OB Flowsheet Initial Weight: 180 lb Date -?-?-?-?-?-?-?-?-?-?-?-?- EGA Weight BP Urine Prot -?-?-?-?-?-?-?-?-?-?-?-?- Glucose FHR FuHt Pres Dilation -?-?-?-?-?-?-?-?-?-?-?-?- Effaced St Visit Note 07/01/20 -?-?-?-?-?-?-?-?-?-?-?-?- 7w 6d 181 lb 4 oz (+1 lb 4 oz) 118/68 -?-?-?-?-?-?-?-?-?-?-?-?- 160 -?-?-?-?-?-?-?-?-?-?-?-?- GP - no cramping or bleeding. CRL consistent with prior US. GP - Dated by US 06/20. CRL consistent with prior US. 08/01/20 -?-?-?-?-?-?-?-?-?-?-?-?- 12w 2d 181 lb (+16 oz) 118/82 Negative -?-?-?-?-?-?-?-?-?-?-?-?- Negative 145 -?-?-?-?-?-?-?-?-?-?-?-?- SM- no vb crampi ng doing well 08/28/20 -?-?-?-?-?-?-?-?-?-?-?-?- 16w 1d 180 lb (+0 oz) 102/66 Negative -?-?-?-?-?-?-?-?-?-?-?--?- Negative 140 -?-?-?-?-?-?-?-?-?-?-?-?- GP - no cramping or bleeding. Feeling flutters of movement. Anatomy scan ordered. 09/27/20 -?-?--?-?-?-?-?-?-?-?-?-?- 20w 3d 184 lb (+4 lb) 100/58 Negative -?-?-?-?-?-?-?-?-?-?-?-?- Negative 140 20 -?-?-?-?-?-?-?-?-?-?-?-?- SM- no vb lof go od fm no regular ctx 10/25/20 -?-?-?-?-?-?-?-?-?-?-?-?- 24w 3d 187 lb (+7 lb) 102/68 Negative -?-?-?-?-?-?-?-?-?-?-?-?- Negative 145 24 -?-?-?-?-?-?-?-?-?-?-?-?- GP - no LOF, VB, DFM, ctx. Having increased anxiety. On max dose of celexa. Wants to monitor next few weeks before considering changing. 11/21/20 -?-?-?-?-?-?-?-?-?-?-?-?- 28w 2d 192 lb 4 oz (+12 lb 4 oz) 104/62 Negative -?-?-?-?-?-?-?-?-?-?-?-?- Negative 146 28 -?-?-?-?-?-?-?-?-?-?-?-?- MH-No Vb, LOF. Good FM. Feeling more issues with depression. On citalopram 40mg and not improving. Will change to zoloft. MH-No Vb, LOF. Good FM. Fe eling more issues with depression. On citalopram 40mg and not improving. Will change to zoloft. 28 wk labs wnl. Tdap, larc, rhogam. 12/05/20 -?-?--?-?-?-?-?-?-?-?-?-?- 30w 2d 196 lb (+16 lb) 122/76 Negative -?-?-?-?-?-?-?-?-?-?-?-?- Negative 145 32 -?-?-?-?-?-?-?-?-?-?-?-?- Sm- no vb lof go od fm nor egular ctx, had 30 minutes of strong lynette hixcks yesterday, resolved. 12/10/20 -?-?-?-?-?-?-?-?-?-?-?-?- 31w 0d 195 lb (+15 lb) 112/66 Trace -?-?-?-?-?-?-?-?-?-?-?-?- Negative 140 -?-?-?-?-?-?-?-?-?-?-?-?- SM- patient seen for headache, malaise, no respiratory symptoms of sick contacts, not feeling well. labs drawn, encouraged supportive care reviewed kick counts and labor precautions. 12/16/20 -?-?-?-?-?-?-?-?-?-?-?-?- 31w 6d 196 lb 8 oz (+16 lb 8 oz) 100/60 Trace -?-?-?-?-?-?-?-?-?-?-?-?- Negative 140 32 -?-?-?-?-?-?-?-?-?-?-?-?- SM- still strugg ling with pelvic pain and discomfort, incresaed anxiety and depression, recommend chiropractor, flexeril, pelvic support girdle and us. 01/13/21 -?-?-?-?-?-?-?-?-?-?-?-?- 35w 6d 203 lb 2 oz (+23 lb 2 oz) 120/72 Negative -?-?-?-?-?-?-?-?-?-?-?-?- Negative 140 36 Cephalic -?-?-?-?-?-?-?-?-?-?-?-?- GP - no LOF, VB, DFM, ctx. Still exhausted and achy after COVID. Will write off work until after delivery. 01/20/21 -?-?-?-?-?-?-?-?-?-?-?-?- 36w 6d 207 lb 8 oz (+27 lb 8 oz) 136/70 -?-?-?-?-?-?-?-?-?-?-?-?- 140 37 Cephalic 3 -?-?-?-?-?-?-?-?-?-?-?-?- 60 -2 GP - no VB , DFM, ctx. Had one gush of fluid - ROM collected. GBS today. 01/22/21 -?-?-?-?-?-?-?-?-?-?-?-?- 37w 1d 208 lb 12.444 oz (+28 lb 12.444 oz) 118/71 114/64 115/61 107/57 111/62 -?-?-?-?-?-?-?-?-?-?-?-?- -?-?-?-?-?-?-?-?-?-?-?-?- Admitted in acti ve labor NST FHR Rate Baby A Baseline: 130 Variability:: Moderate Accelerations:: 15 x 15 Decelerations:: None NST Reactive:: Yes FHR Category:: Category I Uterine Activity:: q3-6 min ROS Eyes Eyes: Reports systems reviewed and no addt'l complaints, except as documented ENT HEENT: Reports systems reviewed and no addt'l complaints, except as documented Cardiovascular Cardiovascular: Reports systems reviewed and no addt'l complaints, except as documented Respiratory/Chest Respiratory/Chest: Reports systems reviewed and no addt'l complaints, except as documented Gastrointestinal Gastrointestinal: Reports systems reviewed and no addt'l complaints, except as documented Genitourinary Genitourinary: Reports systems reviewed and no addt'l complaints, except as documented Musculoskeletal Musculoskeletal: Reports systems reviewed and no addt'l complaints, except as documented Integumentary Integumentary: Reports systems reviewed and no addt'l complaints, except as documented Neurologic Neurologic: Reports systems reviewed and no addt'l complaints, except as documented Psychiatric Psychiatric: Reports systems reviewed and no addt'l complaints, except as documented Endocrine Endocrinology: Reports systems reviewed and no addt'l complaints, except as documented Hematologic/Lymphatic Hematologic/Lymphatic: Reports systems reviewed and no addt'l complaints, except as documented Allergic/Immunologic Allergic/Immunologic: Reports systems reviewed and no addt'l complaints, except as documented Vital Signs Vital Signs Vital Signs: 01/22/21 20:35 01/22/21 21:55 01/22/21 22:22 Temperature 98.6 F 98.2 F Temperature Source Temporal Temporal Pulse Rate 95 78 70 Blood Pressure 118/71 114/64 BP Systolic 118 114 BP Diastolic 71 64 Pulse Ox 97 99 01/22/21 22:27 01/22/21 22:32 01/22/21 22:37 Temperature Temperature Source Pulse Rate 79 83 73 Blood Pressure BP Systolic BP Diastolic Pulse Ox 99 99 98 01/22/21 22:42 01/22/21 22:47 01/22/21 22:49 Temperature Temperature Source Pulse Rate 72 76 76 Blood Pressure 115/61 BP Systolic 115 BP Diastolic 61 Pulse Ox 97 98 01/22/21 22:50 01/22/21 22:52 Temperature Temperature Source Pulse Rate 80 88 Blood Pressure 107/57 L BP Systolic 107 BP Diastolic 57 Pulse Ox 98 Weight Weight: 208 lb 12.444 oz Body Mass Index (BMI) 30.8 Physical Exam Const alert, oriented x3, no apparent distress, average body habitus, healthy appearing and well nourished HEENT normocephalic and moist oral mucous membranes Head and Scalp: atraumatic Eyes PERRL and EOMs intact bilaterally Neck full ROM Resp normal respiratory effort, no retractions and no use of accessory muscles Cardio regular rate and regular rhythm GI soft to palpation, non-tender and non-distended Extremity normal to inspection and full ROM Skin no rashes or lesions noted Neuro no focal motor deficits and no sensory deficits noted Psych mental status grossly normal, affect normal, speech normal and activity/motor behavior normal Labs Labs Labs: Blood Type A NEGATIVE Antibody Screen NEGATIVE Hct 33.7 % (37-47) L Hgb 11.3 g/dL (12.0-15.0) L Obstetrics US Rubella IgG Antibody Reactive (Nonreactive) Hep Bs Antigen Non-Reactive (Nonreactive) Neisseria gonorrhoeae DNA (JESSY) Negative (Negative) HIV 1&2 Antibody Non-Reactive (Nonreactive) C.trachomatis DNA (PCR) Negative (Negative) Glucose 1 Hr 50 gm 131 mg/dL (70-140) Group B Strep DNA Negative (Negative) Rhogam given: No Assessment & Plan (1) Active labor at term: PLAN: Patient presents IAL, plan expectant management for , pitocin/AROM PRN if needed. Pain management: plans epidural. GBS unknown - rapid ordered Management of any complications: none I have reviewed the [facility] and made any clinically relevant updates. (2) COVID-19 virus infection: COMMENT: Start ASA, growth US every 4 weeks (3) : QUALIFIERS: Weeks of gestation: 36 weeks Qualified Code(s): Z3A.36 - 36 weeks gestation of COMMENT: NIPT- low risk girl. Declines carrier and AFP. NL anatomy- needs additional views of spine- NL 10/03/20, 12/24 NL, 01/15 nl growth (4) Rh negative status during : QUALIFIERS: Trimester: third trimester Qualified Code(s): O26.893 - Other specified related conditions, third trimester; Z67.91 - Unspecified blood type, Rh negative COMMENT: given 11/21 (5) History of vacuum extraction assisted delivery: COMMENT: Reports pushing and baby facing wrong direction. (6) Supervision of normal , antepartum: QUALIFIERS: Normal : other normal Qualified Code(s): Z34.80 - Encounter for supervision of other normal , unspecified trimester COMMENT: PRR SANDRA 02/11/21 Girl! Rasheeda Garcia, Spouse Eliceo (7) Depression: QUALIFIERS: Depression Type: major depressive disorder Major depression recurrence: recurrent Active/Remission status: in full remission Qualified Code(s): F33.42 - Major depressive disorder, recurrent, in full remission COMMENT: History of suicidal thoughts. 1 psychiatric hospitalization at age 12. Mood stable on citalopram
[2021-01-22] MEDS: fentaNYL-bupivacaine (epidural) 100 ML BAG EPIDURAL (23:16)
[2021-01-23] VITALS (71 sets, daily range): BP systolic 76–135; BP diastolic 37–71; PULSE 41–109; RESP 16–18; TEMP 36.3–36.9; O2SAT 94–100
[2021-01-23] MEDS: Lactated Ringers 1,000 ML 200 ML IV ×2 (03:01→09:00)
[2021-01-23] MEDS: Oxytocin 30 units/NS 500 ml 30 UNITS/500 ML IV.SOLN IV (03:03)
[2021-01-23] MEDS: Ondansetron 4 MG/2 ML Vial IV (03:09)
[2021-01-23] MEDS: 0.9% Saline Lock 10 ML Syringe IV (03:12)
[2021-01-23] MEDS: fentaNYL-bupivacaine (epidural) 100 ML BAG EPIDURAL (04:01)
[2021-01-23] MEDS: Lactated Ringers 500 ML 999 ML IV ×2 (04:25→05:16)
[2021-01-23] MEDS: Oxytocin 30 units/NS 500 ml 30 UNITS/500 ML IV.SOLN 334 UNITS IV (10:47)
[2021-01-23] MEDS: Methylergonovine 0.2 MG/ML Ampul IM (10:51)
--- NOTE | 2021-01-23 11:36 | EX.PCM.OBRPT ---
Assessment & Plan (1) Active labor at term: (2) COVID-19 virus infection: COMMENT: Start ASA, growth US every 4 weeks (3) 32 weeks gestation of : COMMENT: electronic covid test ordered 12/18/20 (4) Pelvic pain affecting : COMMENT: tylenol, flexeril, pelvic support girdle, chiropractor consult, recommend light duty and reduced hours. (5) Rh negative status during : QUALIFIERS: Trimester: third trimester Qualified Code(s): O26.893 - Other specified related conditions, third trimester; Z67.91 - Unspecified blood type, Rh negative COMMENT: given 11/21 (6) : QUALIFIERS: Weeks of gestation: 36 weeks Qualified Code(s): Z3A.36 - 36 weeks gestation of COMMENT: NIPT- low risk girl. Declines carrier and AFP. NL anatomy- needs additional views of spine- NL 10/03/20, 12/24 US NL, 01/15 nl growth (7) History of vacuum extraction assisted delivery: COMMENT: Reports pushing and baby facing wrong direction. (8) Supervision of normal , antepartum: QUALIFIERS: Normal : other normal Qualified Code(s): Z34.80 - Encounter for supervision of other normal , unspecified trimester COMMENT: PRR SANDRA 02/11/21 Girl! Rasheeda FERRELL Garcia, Spouse Eliceo (9) Depression: QUALIFIERS: Depression Type: major depressive disorder Major depression recurrence: recurrent Active/Remission status: in full remission Qualified Code(s): F33.42 - Major depressive disorder, recurrent, in full remission COMMENT: History of suicidal thoughts. 1 psychiatric hospitalization at age 12. Mood stable on citalopram (10) Anxiety: (11) Vaginal delivery: COMMENT: 37 Rasheeda IAL Maternal Data Information SANDRA Calculator Estimated Delivery Date Method Current WG Current Estimate 02/11/21 Ultrasound #1 37w 2d Other Estimates 02/03/21 LMP (Certain) 38w 3d Vaginal Delivery Maternal Presentation Maternal Presentation: Active Labor Maternal Presentation: ial37 weeks Operative Information Date of Procedure: 01/23/21 Pre-Operative Diagnosis: IAL Post-Operative Diagnosis: same Surgery / Procedure Performed: Spontaneous Vaginal Delivery Type of Anesthesia: Epidural Special Medications: none Estimated Blood Loss: 100 Fluids Replaced: crystalloid Findings Description of Procedure: Patient began pushing and delivered the head in the [KOSTA] presentation. The head was delivered atraumatically tight nuchal cord x2 was seen in each were reduced over the 's head. The anterior and posterior shoulders delivered without complication followed by the rest of the infant and the was placed on the maternal abdomen. Delayed cord clamping was employed for approximately 60 seconds. Cord was clamped and cut and gentle traction was applied to the cord and the placenta delivered spontaneously immediately following it was noted to be intact with three-vessel cord. The perineum and vagina were inspected and noted to have a small second-degree laceration that was repaired in the usual fashion in the perineum using 3-0 Vicryl Rapide. EBL was cc. Patient and tolerated delivery well. Presentation: KOSTA Amniotic Membrane Rupture Type: Artificial Amniotic Fluid Description: Clear Placental Delivery Description: Spontaneous Placenta Disposition: [facility] Cord Vessel Description: 3 Vessels Cord Entanglement: None A Gender: Female Delayed Cord Clamping: Yes Post Vaginal Delivery Medications Given After Delivery: IV Pitocin and IM Methergin (given for atony) Episiotomy Description: None Laceration: Perineal Extension/lac and 2nd degree Complication Complications: None Procedures Urinary/Genital 52xxx-59xxx: 53516 Vaginal Delivery [facility]
[2021-01-23] MEDS: Sertraline 100 MG Tablet PO (22:58)
[2021-01-23] MEDS: Acetaminophen 500 MG Tablet 1000 MG PO (23:43)
--- NOTE | 2021-01-24 01:48 | PCM.DC ---
Discharge Instructions Diet Discharge Diet: No restrictions Activity Discharge Activity: Return to Normal Activity, May not drive while taking narcotic pain medications. and May Shower May resume sexual activity in: 4-6 weeks Dressing / Incision Call your doctor if your incision/area has: Continuous Slow Oozing, Sudden Increased Bleeding, Increased Pain/ Swelling, Increased Redness and Foul Smelling Discharge Follow Up Care Please Follow Up With: Jacinda Patricia MD When: Call [phone] to make an appointment with your doctor in 6 weeks. If you had elevated blood pressure or 4th degree laceration, you will need to be seen in 2 weeks. Test Results: Test results from this visit will be discussed in further detail at your follow-up appointment, if applicable. Discharge Plan Admission Admit Date/Time: 01/22/21 20:55 Primary Reason for Your Visit: vaginal delivery Attending Provider: Jacinda Patricia Primary Care Provider: Denisa Edmonds Instructions Patient Instructions: After a Vaginal Discharge Orders/Prescriptions Prescriptions: New naproxen 250 MG tablet 250 - 500 mg PO Q8H PRN PRN (Reason: MILD PAIN) Qty: 30 RF: 1 Continued PNV-DHA 27 mg iron-1 mg -300 mg capsule 1 cap PO DAILY RF: 0 sertraline 100 mg tablet 100 mg PO DAILY Qty: 30 RF: 12 Referrals / Follow Up: Denisa Edmonds MD [Primary Care Provider] -
[2021-01-24 03:41] VITALS: BP 101/68; PULSE 83; RESP 18
[2021-01-24 08:30] VITALS: BP 113/54; PULSE 61; RESP 16; O2SAT 98
--- NOTE | 2021-01-24 08:52 | PCM.PN.OB ---
Subjective Subjective Patient doing well without complaints. Tolerating PO. Ambulating and voiding without difficulty. Breast feeding well. Denies chest pain, shortness of breath, calf pain/swelling, fevers, chills, lightheadedness. Objective Data Objective Data Vital Signs: Vital Signs Temp Pulse Resp BP Pulse Ox 98.1 F 83 18 101/68 97 01/23/21 19:52 01/24/21 03:41 01/24/21 03:41 01/24/21 03:41 01/23/21 19:52 Oxygen Delivery Method Room Air Weight: 208 lb 12.444 oz Body Mass Index (BMI) 30.8 Intake & Output: Intake and Output for Last 24 Hours 01/22/21 01/23/21 01/24/21 23:59 23:59 23:59 Intake Total 1218.34 / 1218.34 3952.53 / 3952.53 Output Total 3000 / 3000 Balance 1218.34 / 1218.34 952.53 / 952.53 Lab / Micro Data Result Diagrams: 01/22/21 21:20 ROS Constitutional Constitutional: Denies fever(s) Cardiovascular Cardiovascular: Denies chest pain, dyspnea or lightheadedness Gastrointestinal Gastrointestinal: Reports abdominal pain; Denies constipation or diarrhea Neurologic Neurologic: Denies dizziness or headache(s) Physical Exam Const alert, oriented x3, no apparent distress, average body habitus, healthy appearing and well nourished HEENT normocephalic Head and Scalp: atraumatic Eyes PERRL and EOMs intact bilaterally Neck full ROM Lymph Lymphatic: no lymphadenopathy noted Resp normal respiratory effort, no retractions and no use of accessory muscles Cardio regular rate GI soft to palpation, non-tender and non-distended Inspection: incision intact and other (dressing in place) Palpation: other Other Details: fundus firm Extremity normal to inspection and no clubbing, cyanosis or edema Skin no rashes or lesions noted Neuro no focal motor deficits and no sensory deficits noted Psych mental status grossly normal, affect normal and speech normal Assessment & Plan (1) Vaginal delivery: COMMENT: PRIETO 37 AMNA Vanessa IAAvery PLAN: s/p PPD # 1 1. routine post delivery care 2. breast feeding- support given 3. rh negative 4. rubella immune
[2021-01-24 09:39] VITALS: TEMP 36.6
[2021-01-24] MEDS: Naproxen 500 MG Tablet PO (11:04)
--- NOTE | 2021-01-24 13:00 | CASEMGMT ---
Social Work Assessment Labor and Delivery Unit Date of Referral: 01.23.2021 Time of Referral: 1141 Referred By: Dr. Patricia Date of Intervention: 01.24.2021 Time of Intervention: 1300 Reason for Referral: maternal history of anxiety, depression, and depression. History obtained from: medical records and mother of baby (MOB) Deanna Campos. Household composition: MOB and FOB live together with older child, no issues reported with housing. Patient's parent/guardian status: MOB (age 20) and FOB Eliceo Campos (age 22) have been since December 2018, together for 2 years. MOB denies any form of abuse in relationship with FOB. MOB and FOB now have 2 children together: Jose Campos, born on 07.24.2019; Jansen baby Rasheeda Campos, born 01.23.[birth year]21. Medical History: MOB is G2, P1 to 2 after delivering Rasheeda. care started at 7 weeks gestation and regular thereafter. Rasheeda weighed 7 pounds 6 ounces a . Apgars 6 and 8 at 1 and 5 minutes of life. Educational Status: MOB graduated high school. No reported issues with reading, writing, or learning comprehension. 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 Plans to return to employment after maternity leave. FOB works installing [employer] countertops. No reported concerns currently. Infant Supplies: MOB and FOB report to have needed supplies including safe sleep space and car seat for the baby. Childcare/Caregiver(s): MOB and FOB. Transportation: No issues. Programs/Agencies Involved: No agency involvement at this time. Denies need. MOB did see a counselor during the COVID pandemic at [facility]. Not currently active with this agency however. Children Services/Legal Issues: No reported history. Behavioral Health Issues: Mental Health History: MOB with history of depression and anxiety, diagnosed when MOB was 12 years old. MOB has been to counseling as a teen, which wast not the best experience. Tried counseling in the last year at [facility]. MOB currently on Zoloft and plans to stay on this in the period. MOB with history of suicidal thoughts with plan to use a gun when 12 years old, which resulted in MOB going to an inpatient hospitalization. MOB denies any past attempts at suicide. Denies any thoughts of dying or self harm during this . MOB does endorse some anxiety after Jose was born, which MOB reports lessened by the 4th month . Substance Use History: MOB denies past or present drug use. History of social alcohol use but not in . No tobacco use. Prescribed Flexeril on 01.23.2021 for back pain. Family History: maternal grandmother with bipolar disorder Drug Screens: maternal screen negative on 07.01.2020 and on 11.21.2020.. Family/Social Stressors: NO reported stressors currently. Support Systems: MOB reports to have a strong support system from FOB, MOB?s mom and from FOB?s mother. FOB will be home for a week or so after going home. Depression/Shaken Baby/Safe Sleeping: information given on all topics. ASSESSMENT: Met with MOB in room, introducing to selfl and social work role. This newspaper writer familiar with MOB from prior delivery at [facility]. MOB pleasant, cooperative, and engaging in conversation. Reports intent to remain on medication in the period. Reports to feel the medication is working well, and will let others know if symptoms of depression or anxiety arise or become distressing. MOB held good eye contact. Attentive to baby. No concerns voiced by nursing staff regarding mother/child interactions or bonding. MOB will have help with baby at home going. Denies any needs or concerns at this time. Emotional support offered. mood and anxiety packet given, including resources for support. [facility] resources list provided as well. PLAN: MOB and baby to discharge home. Resources in place for home going. -DEDE Arellano, SECURE SOFTWARE ASSESSOR
[2021-01-24 14:00] VITALS: BP 117/53; PULSE 61; RESP 16; TEMP 36.8; O2SAT 98
== END 2021-01-24 16:10 | disposition home or self-care (01) | DRG 807 ==
LOC: OPUS 20:58 → WP 21:13
PROVIDERS: Obstetrics & Gynecology; Admitting Provider Obstetrics & Gynecology; PCP Internal Medicine; Visit Provider Obstetrics & Gynecology
DX: O99.344 Other mental disorders complicating childbirth (principal); Z37.0 Single live birth; F32.9 Major depressive disorder, single episode, unspecified; F41.9 Anxiety disorder, unspecified; Z79.899 Other long term (current) drug therapy; Z67.91 Unspecified blood type, Rh negative; Z86.16 Personal history of COVID-19; Z3A.37 37 weeks gestation of pregnancy; O69.1XX0 Labor and delivery complicated by cord around neck, with compression, not applicable or unspecified; O70.1 Second degree perineal laceration during delivery
CPT/HCPCS: 59025; 59050; 85025; 86850; 86900; 86901; 87081; 87653; 99218; J7120; A4216; G0378; J2405

== ENCOUNTER → 2021-05-27 | Outpatient (CLI) | payer OTHER, SELFPAY | END | disposition home or self-care (01) | LOC: LABSPEC 14:51 | PROVIDERS: PCP Internal Medicine; Referring Provider Physician Assistant Surgical; Visit Provider Physician Assistant Surgical | DX: Z11.52 Encounter for screening for COVID-19 (principal) | CPT/HCPCS: 87635; U0005; U0003 ==

== ENCOUNTER → 2022-11-06 | Outpatient (CLI) | payer OTHER, SELFPAY ==
[2022-11-06 12:40] LABS: AST(SGOT) 18 U/L (15-37); Alanine Aminotransfer ALT/SGPT 31 U/L (13-56); Cholesterol 106 mg/dL (200); High Density Lipoprotein 29 mg/dL; Triglycerides 38 mg/dL; Very Low Density Lipoprotein 8 mg/dL (5-40)
[2022-11-06 12:48] LABS: hCG Titer Quant., Serum < 1 mIU/mL (1-3)
[2022-11-07 12:38] LABS: LDL, Direct 120295 75 mg/dL (0-99)
== END | disposition home or self-care (01) ==
LOC: MTLAB 09:28
PROVIDERS: PCP Internal Medicine; Referring Provider Dermatology; Visit Provider Dermatology
DX: L70.0 Acne vulgaris (principal); L90.5 Scar conditions and fibrosis of skin; L70.5 Acne excoriee; Z79.899 Other long term (current) drug therapy
CPT/HCPCS: 36415; 80061; 83721; 84450; 84460; 84702

== ENCOUNTER → 2022-12-23 | Outpatient (CLI) | payer OTHER, SELFPAY ==
[2022-12-23 15:30] LABS: Internal QC Validated? YES +Cl - CLEAR BKGD; Pregnancy, Urine Negative Negative
== END | disposition home or self-care (01) ==
LOC: MTLAB 13:41
PROVIDERS: PCP Internal Medicine; Referring Provider Dermatology; Visit Provider Dermatology
DX: L70.0 Acne vulgaris (principal); L90.5 Scar conditions and fibrosis of skin; L70.5 Acne excoriee; Z79.899 Other long term (current) drug therapy; L23.3 Allergic contact dermatitis due to drugs in contact with skin
CPT/HCPCS: 81025

== ENCOUNTER → 2023-02-02 | Outpatient (CLI) | payer OTHER, SELFPAY ==
[2023-02-02 18:01] LABS: Internal QC Validated? YES +Cl - CLEAR BKGD; Pregnancy, Urine Negative Negative
== END | disposition home or self-care (01) ==
LOC: MTLAB 14:19
PROVIDERS: PCP Internal Medicine; Referring Provider Dermatology; Visit Provider Dermatology
DX: L70.0 Acne vulgaris (principal); L90.5 Scar conditions and fibrosis of skin; L70.5 Acne excoriee; Z79.899 Other long term (current) drug therapy; L23.3 Allergic contact dermatitis due to drugs in contact with skin
CPT/HCPCS: 81025

== ENCOUNTER → 2023-03-04 | Outpatient (CLI) | payer OTHER, SELFPAY ==
[2023-03-04 10:55] LABS: AST(SGOT) 18 U/L (15-37); Alanine Aminotransfer ALT/SGPT 21 U/L (13-56); Cholesterol 174 mg/dL (200); High Density Lipoprotein 40 mg/dL; Triglycerides 82 mg/dL; Very Low Density Lipoprotein 16 mg/dL (5-40)
[2023-03-04 10:59] LABS: hCG Titer Quant., Serum < 1 mIU/mL (1-3)
== END | disposition home or self-care (01) ==
LOC: MTLAB 08:23
PROVIDERS: PCP Internal Medicine; Referring Provider Dermatology; Visit Provider Dermatology
DX: Z79.899 Other long term (current) drug therapy (principal); L70.0 Acne vulgaris; L90.5 Scar conditions and fibrosis of skin; L70.5 Acne excoriee; L23.3 Allergic contact dermatitis due to drugs in contact with skin
CPT/HCPCS: 36415; 80061; 84450; 84460; 84702

== ENCOUNTER → 2023-04-15 | Outpatient (CLI) | payer OTHER, SELFPAY ==
[2023-04-15 15:37] LABS: Internal QC Validated? YES +Cl - CLEAR BKGD; Pregnancy, Urine Negative Negative
== END | disposition home or self-care (01) ==
LOC: MTLAB 11:34
PROVIDERS: PCP Nurse Practitioner Family; Visit Provider Dermatology
DX: L70.0 Acne vulgaris (principal); L90.5 Scar conditions and fibrosis of skin; L70.5 Acne excoriee; Z79.899 Other long term (current) drug therapy; L23.3 Allergic contact dermatitis due to drugs in contact with skin; I78.8 Other diseases of capillaries
CPT/HCPCS: 81025

== ENCOUNTER → 2023-05-17 | Outpatient (CLI) | payer OTHER, SELFPAY ==
[2023-05-17 16:35] LABS: Internal QC Validated? YES +Cl - CLEAR BKGD; Pregnancy, Urine Negative Negative
== END | disposition home or self-care (01) ==
LOC: MTLAB 13:20
PROVIDERS: PCP Nurse Practitioner Family; Referring Provider Dermatology; Visit Provider Dermatology
DX: L70.0 Acne vulgaris (principal); L90.5 Scar conditions and fibrosis of skin; Z79.899 Other long term (current) drug therapy; L23.3 Allergic contact dermatitis due to drugs in contact with skin
CPT/HCPCS: 81025

== ENCOUNTER → 2023-06-10 | Outpatient (CLI) | payer OTHER, SELFPAY ==
[2023-06-15 23:14] LABS: HPV Reflexed? NOT INDICATED
== END | disposition home or self-care (01) ==
LOC: LABSPEC 14:35
PROVIDERS: PCP Nurse Practitioner Family; Referring Provider Nurse Practitioner Women's Health; Visit Provider Nurse Practitioner Women's Health
DX: Z12.4 Encounter for screening for malignant neoplasm of cervix (principal)
CPT/HCPCS: 88175; G0145

== ENCOUNTER → 2023-06-18 | Outpatient (CLI) | payer OTHER, SELFPAY ==
[2023-06-18 16:21] LABS: Internal QC Validated? YES +Cl - CLEAR BKGD; Pregnancy, Urine Negative Negative; Record Kit Lot#,Urine Preg 667200
== END | disposition home or self-care (01) ==
LOC: MTLAB 12:54
PROVIDERS: PCP Nurse Practitioner Family; Referring Provider Dermatology; Visit Provider Dermatology
DX: L70.0 Acne vulgaris (principal); L90.5 Scar conditions and fibrosis of skin; Z79.899 Other long term (current) drug therapy; L23.3 Allergic contact dermatitis due to drugs in contact with skin
CPT/HCPCS: 81025

== ENCOUNTER 2023-07-21 03:38 | Emergency (ER) | payer OTHER, SELFPAY ==
[2023-07-21 03:38] VITALS: BP 108/60; PULSE 58; RESP 16; TEMP 36.2; O2SAT 99; BMI 24.7
--- NOTE | 2023-07-21 03:53 | EDS_ITS ---
HPI History of Present Illness Chief Complaint: Dental Narrative Narrative: 23-year-old female past medical history of acne for which she takes Accutane, has an IUD and takes control as well, presents with right lower jaw pain and swelling that she has had over the last 48 hours. She states that she has dental pain and noticed pain in her right jaw are radiating down her throat. She does have pain with swallowing at times. She denies any fevers or chills, no nausea or vomiting. Additionally, she states that her wisdom teeth have not fully come in yet. She has been having pain that is continuing even with the addition of [id number] analgesics. She called her dentist who is unable to see her until next week, after the . [facility] Medical History Anxiety Depression depression Home Medications buspirone 7.5 mg tablet 7.5 mg PO BID 06/10/23 [History Last Taken Unknown] citalopram 40 mg tablet 40 mg PO DAILY #90 tabs 06/10/23 [Rx Last Taken Unknown] drospirenone 3 mg-ethinyl estradiol 0.03 mg tablet (Rachel (28)) 1 tab PO DAILY #28 tabs 06/10/23 [Rx Last Taken Unknown] isotretinoin 10 mg capsule (Accutane) 40 mg PO BID 06/10/23 [History Last Taken Unknown] clindamycin HCl 300 mg capsule (Cleocin HCl) 300 mg PO Q6H #40 CAPSULES 07/21/23 [Rx Last Taken Unknown] tramadol 50 mg tablet 50 mg PO Q4H PRN PRN Pain #12 tabs 07/21/23 [Rx Last Taken Unknown] Allergy/AdvReac Type Severity Reaction Status Date / Time No Known Allergies Allergy Verified 07/21/23 03:41 Family History Father Diabetes Other Cholecystectomy planned Surgical History History of cholecystectomy Social History adopted: No household members: family housing: house current occupational status: employed 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 current occupational exposures/hazards: No pets and animals: Yes history of recent travel: Yes sexually active: Yes Smoking Status: Never smoker second hand exposure: No alcohol intake: current alcohol intake frequency: holidays/special occasions only substance use type: does not use what type of physical activity do you participate in: running frequency: 3-4 times per week seatbelt use: always do you feel safe at home: Yes additional social history: Spouse- Eliceo- [employer] sales supervisor ROS ROS ED ROS Narrative Constitutional: No fever, no chills. HEENT: No sore throat. No neck pain. No loss of vision. No rhinorrhea. Right jaw pain, lower, and swelling. Positive dental pain in right lower jaw. Pain with swallowing, and radiating downward towards neck. Cardiovascular: No chest pain. No palpitations. No pedal edema. Respiratory: No cough, no shortness of breath. Abdominal: No abdominal pain. No nausea. No vomiting. Genitourinary: No dysuria. No hematuria. Musculoskeletal: No myalgias. No arthralgias. Neurologic: No headaches. No dizziness. No lightheadedness. Skin: No rash. No change in color. Psychiatric: No depression. No anxiety. EXAM Physical Exam Narrative Exam Narrative: Afebrile. Vital signs noted. HEENT: Normocephalic. Atraumatic. PERRL, EOMI. Neck soft and supple. No point tenderness or step off. HEENT shows tenderness to percussion of the first and second molars without obvious caries. No drooling or trismus. Airway is patent. Mild swelling of right lower jaw without erythema. No Axel angina noted. Handling own secretions well. Cardiovascular: Regular rate and rhythm. No murmurs, rubs, or gallops appreciated. Respiratory: No tachypnea. Lungs clear to auscultation bilaterally. Gastrointestinal: Abdomen soft, nontender, with normoactive bowel sounds. No rebound or guarding. Neurological: Awake. Alert. Nonfocal, nonlateralizing. Const Vital Signs: 07/21/23 03:38 Temperature 97.1 F L Temperature Source Temporal Pulse Rate 58 L Respiratory Rate 16 Blood Pressure 108/60 Blood Pressure Mean 76 Pulse Ox 99 Oxygen Delivery Method Room Air MDM MDM MDM Narrative Medical decision making narrative: In the differential diagnosis is dental abscess versus dental pain. I have low suspicion for Axel angina based on her history and physical. Her airway is patent and she is handling her own secretions well. I do not feel that narcotic pain medication is indicated, but I do feel that she merits tramadol as she has been trying other [id number] analgesics without success. She will be started on clindamycin as well for periapical abscess. I do not feel she requires laboratory work or CT imaging. She will follow-up with her dentist as soon as possible. I do not feel she requires transfer or admission either. I do feel that she would merit outpatient trial of antibiotics and analgesics. She was also given a list of dental resources in the area. Return instructions to the emergency department were reviewed. Disposition is discharged home in stable condition. History & Record Review Discussion w/independent historian: Patient Additional record(s) reviewed:: Prior ED visit Discharge Plan Triage Chief Complaint: Dental ED Provider: Cleveland Suazo Dx/Rx/DC Orders Clinical Impression: Pain, dental, Jaw pain Instructions: ED Dental Pain, ED Dental Abscess Prescriptions: New clindamycin HCl [Cleocin HCl] 300 mg capsule 300 mg PO Q6H Qty: 40 0RF tramadol 50 mg tablet 50 mg PO Q4H PRN PRN (Reason: Pain) Qty: 12 0RF No Action buspirone 7.5 mg tablet 7.5 mg PO BID isotretinoin [Accutane] 10 mg capsule 40 mg PO BID drospirenone-ethinyl estradiol [Rachel (28)] 3-0.03 mg tablet 1 tab PO DAILY Qty: 28 3RF citalopram 40 mg tablet 40 mg PO DAILY Qty: 90 3RF Primary Care Provider: Marlene Tong Referrals: Marlene Tong, [facility] [Primary Care Provider] - Activity Restrictions/Additional Instructions: Follow-up with your dentist as soon as possible. Antibiotics as directed. Take tramadol for breakthrough pain. Continue Tylenol and ibuprofen as needed for analgesia. Disposition Disposition: Home, Self Care
[2023-07-21 04:05] VITALS: BP 108/60; PULSE 58; RESP 15; O2SAT 99
== END 2023-07-21 05:23 | disposition home or self-care (01) ==
PROVIDERS: Emergency Provider Emergency Medicine; PCP Nurse Practitioner Family; Visit Provider Emergency Medicine
DX: K08.89 Other specified disorders of teeth and supporting structures (principal); R68.84 Jaw pain; L70.9 Acne, unspecified; Z79.899 Other long term (current) drug therapy; Z79.3 Long term (current) use of hormonal contraceptives; F41.9 Anxiety disorder, unspecified; F32.A Depression, unspecified; Z90.49 Acquired absence of other specified parts of digestive tract
CPT/HCPCS: 99282

== ENCOUNTER → 2023-07-27 | Outpatient (CLI) | payer OTHER, SELFPAY ==
[2023-07-27 15:46] LABS: Internal QC Validated? YES +Cl - CLEAR BKGD; Pregnancy, Urine Negative Negative
== END | disposition home or self-care (01) ==
PROVIDERS: PCP Nurse Practitioner Family; Referring Provider Dermatology; Visit Provider Dermatology
DX: L70.0 Acne vulgaris (principal); L90.5 Scar conditions and fibrosis of skin; L70.5 Acne excoriee; Z79.899 Other long term (current) drug therapy; L23.3 Allergic contact dermatitis due to drugs in contact with skin
CPT/HCPCS: 81025

== ENCOUNTER → 2023-09-06 | Outpatient (CLI) | payer OTHER, SELFPAY ==
[2023-09-06 16:07] LABS: Internal QC Validated? YES +Cl - CLEAR BKGD; Pregnancy, Urine Negative Negative
== END | disposition home or self-care (01) ==
PROVIDERS: PCP Nurse Practitioner Family; Referring Provider Dermatology; Visit Provider Dermatology
DX: L70.0 Acne vulgaris (principal); L90.5 Scar conditions and fibrosis of skin; L70.5 Acne excoriee; Z79.899 Other long term (current) drug therapy; L23.3 Allergic contact dermatitis due to drugs in contact with skin
CPT/HCPCS: 81025

== ENCOUNTER → 2023-10-06 | Outpatient (CLI) | payer OTHER, SELFPAY ==
[2023-10-06 15:07] LABS: Internal QC Validated? YES +Cl - CLEAR BKGD; Pregnancy, Urine Negative Negative
== END | disposition home or self-care (01) ==
PROVIDERS: PCP Nurse Practitioner Family; Referring Provider Dermatology; Visit Provider Dermatology
DX: L70.0 Acne vulgaris (principal); L90.5 Scar conditions and fibrosis of skin; L70.5 Acne excoriee; Z79.899 Other long term (current) drug therapy; L23.3 Allergic contact dermatitis due to drugs in contact with skin
CPT/HCPCS: 81025